=== PATIENT | male | born 1930 | race Caucasian/White ===

== ENCOUNTER 2017-03-18 14:28 | Outpatient (CLI) | payer MEDICARE, OTHER | END 2017-03-18 14:29 | disposition home or self-care (01) | DX: I50.9 Heart failure, unspecified (principal) ==

== ENCOUNTER 2017-03-19 09:02 | Outpatient (CLI) | payer MEDICARE, OTHER | END 2017-03-19 09:03 | disposition home or self-care (01) | LOC: DI 09:02 | PROVIDERS: ATTEND Internal Medicine | DX: I25.10 Atherosclerotic heart disease of native coronary artery without angina pectoris (principal); I51.7 Cardiomegaly | CPT/HCPCS: 93306 ==

== ENCOUNTER 2017-04-14 13:21 | Outpatient (CLI) | payer MEDICARE, OTHER ==
--- NOTE | 2017-04-14 17:11 | XRAY Report ---
TWO VIEW CHEST: 04/14/2017 CLINICAL INDICATION: Dyspnea. FINDINGS: Frontal and lateral views of the chest demonstrate changes of previous cardiac surgery. Th e cardiac silhouette is enlarged. Linear atelectasis or scarring is seen in the upper lobes. No focal consolidation, effusion, or pneumothorax is present. IMPRESSION: POSTOPERATIVE CHANGES. NO EVIDENCE OF ACUTE CARDIOPULMONARY DISEASE. JOB #: [id number] EXT JOB #:[id number]
== END 2017-04-14 13:22 | disposition home or self-care (01) ==
LOC: DI.S 13:21
PROVIDERS: ATTEND Internal Medicine
DX: R06.00 Dyspnea, unspecified (principal)
CPT/HCPCS: 71020

== ENCOUNTER 2017-08-10 16:46 | Emergency (ER) | payer MEDICARE, OTHER ==
--- NOTE | 2017-08-10 17:31 | XRAY Preliminary Report ---
Exam: XR CHEST 2 VIEW PA/LAT IMPRESSION: No change. No developing consolidative pneumonia. Perihilar airway thickening unchanged. [facility] SITE ID: [id number]
--- NOTE | 2017-08-10 17:34 | XRAY Report ---
EXAM: CHEST RADIOGRAPHY EXAM DATE: 08/10/2017 05:24 PM. CLINICAL HISTORY: Cough. COMPARISON: 04/14/2017. TECHNIQUE: 2 views. FINDINGS: Lungs/Pleura: Bilateral perihilar interstitial prominence appears without significant interval change . Lung volumes are stable. Negative for pleural effusion and pneumothorax. Mediastinum: Previous sternotomy noted. Mediastinal contour is unchanged. Other: None. IMPRESSION: No change. No developing consolidative pneumonia. Perihilar airway thickening unchanged. [facility] Referring Provider Line: [phone] SITE ID: [id number]
[2017-08-10 17:44] LABS: BASOPHILS # (AUTO) 0.1 10^3/uL (0.0-0.1); BASOPHILS % (AUTO) 0.6 %; EOSINOPHILS % (AUTO) 0.1 %; HCT - HEMATOCRIT 40.9 % (42.0-52.0); HGB - HEMOGLOBIN 13.8 g/dL (14.0-18.0); LYMPHOCYTES # (AUTO) 0.8 10^3/uL (1.5-3.5); LYMPHOCYTES % (AUTO) 7.1 %; MEAN CORPUSCULAR HEMOGLOBIN 30.2 pg (27.0-31.0); MEAN CORPUSCULAR HGB CONC 33.8 g/dL (32.0-36.0); MEAN CORPUSCULAR VOLUME 89.3 fL (80.0-94.0); MEAN PLATELET VOLUME 8.6 fL (7.4-11.4); MONOCYTES # (AUTO) 1.2 10^3/uL (0.0-1.0); MONOCYTES % (AUTO) 10.5 %; NEUTROPHILS # (AUTO) 9.6 10^3/uL (1.5-6.6); NEUTROPHILS % (AUTO) 81.7 %; RED BLOOD COUNT 4.59 10^6/uL (4.70-6.10); RED CELL DISTRIBUTION WIDTH 13.4 % (12.0-15.0); UNCORRECTED WHITE BLOOD COUNT 11.8 x10^3/uL; WHITE BLOOD COUNT 11.8 x10^3/uL (4.8-10.8)
[2017-08-10 17:53] LABS: CALCIUM 8.9 mg/dL (8.5-10.3); POTASSIUM 3.4 mmol/L (3.5-5.0); TOTAL PROTEIN 7.8 g/dL (6.7-8.2)
[2017-08-10] MEDS ORDERED: AZITHROMYCIN 250 MG TABLET PO STA (18:17)
[2017-08-10] MEDS ORDERED: guaiFENesin/CODEINE 5 ML UDC PO STA (18:17)
--- NOTE | 2017-08-10 18:17 | ED Physician Documentation ---
PD HPI DYSPNEA - Stated complaint Stated Complaint: SOA/FEVER - Chief complaint Chief Complaint: Resp - History obtained from History obtained from: Patient - History of Present Illness Timing - onset: Other (This is an 87-year-old gentleman with type 2 diabetes he has had 4 days of productive cough and a variety of colors with mild dyspnea and some fevers including a temperature to 100.6 today.) Review of Systems Constitutional: reports: Fever, Chills, Fatigue Nose: denies: Rhinorrhea / runny nose, Congestion Throat: denies: Sore throat Cardiac: denies: Chest pain / pressure, Palpitations Respiratory: reports: Dyspnea, Cough PD PAST MEDICAL HISTORY - Present Medications Home Medications: Ambulatory Orders Medication Instructions Recorded Confirmed Albuterol Sulfate [Proventil Hfa 1 - 2 puffs IH Q4H PRN #1 08/10/17 Inhaler] [email or web address] Amlodipine Besylate 10 mg PO DAILY 08/10/17 08/10/17 Aspirin [Adult Low Dose Aspirin EC] 81 mg PO DAILY 08/10/17 08/10/17 Azithromycin [Zithromax] 250 mg PO DAILY #4 tablet 08/10/17 Losartan Potassium 50 mg DAILY 08/10/17 08/10/17 Metformin HCl 500 mg PO BID 08/10/17 08/10/17 Nitroglycerin 0.4 mg/Hr Patch 1 patch DAILY 08/10/17 08/10/17 [Nitro-Dur] Omeprazole [PriLOSEC] 20 mg PO DAILY 08/10/17 08/10/17 Pravastatin Sodium [Pravachol] 20 mg PO DAILY 08/10/17 08/10/17 guaiFENesin/CODEINE [Robitussin AC] 5 - 10 ml PO Q6H PRN #120 ml 08/10/17 - Allergies Allergies/Adverse Reactions: Allergies Allergy/AdvReac Type Severity Reaction Status Date / Time eggs Allergy Unknown Uncoded 08/10/17 18:11 PD ED PE NORMAL - Vitals Vital signs reviewed: Yes - General General: Alert and oriented X 3, No acute distress - Cardiac Cardiac: RRR, No murmur - Respiratory Respiratory: No respiratory distress, Other (Mildly diminished and wheezy throughout without focal findings) - Abdomen Abdomen: Soft, Non tender - Extremities Extremities: No edema, No calf tenderness / cord - Neuro Neuro: Alert and oriented X 3, Normal speech - Psych Psych: Normal mood, Normal affect Results - Vitals Vitals: Vital Signs - 24 hr 08/10/17 16:49 Temperature 37.3 C Heart Rate 106 H Respiratory 22 Rate Blood Pressure 156/85 H O2 Saturation 95 Oxygen O2 Source Room air - Labs Labs: Laboratory Tests 08/10/17 08/10/17 08/10/17 17:25 17:25 17:25 WBC 11.8 H RBC 4.59 L Hgb 13.8 L Hct 40.9 L MCV 89.3 MCH 30.2 MCHC 33.8 RDW 13.4 Plt Count 197 MPV 8.6 Neut # 9.6 H Lymph # 0.8 L [place] # 1.2 H Eos # 0.0 Baso # 0.1 Absolute Nucleated RBC 0.00 Nucleated RBC % 0.0 Sodium 135 Potassium 3.4 L Chloride 98 L Carbon Dioxide 26 Anion Gap 12.0 BUN 13 Creatinine 1.0 Estimated GFR (MDRD) 71 L Glucose 188 H Lactic Acid 1.3 Calcium 8.9 Total Bilirubin 1.0 AST 17 ALT 16 Alkaline Phosphatase 82 Total Protein 7.8 Albumin 3.8 Globulin 3.9 Albumin/Globulin Ratio 1.0 Lipase 16 L PD MEDICAL DECISION MAKING - ED course Complexity details: re-evaluated patient (This is an 87-year-old gentleman who presents with productive cough with clear chest x-ray and mild leukocytosis. No obvious evidence of pneumonia but will be treated with antibiotics given his advanced age and comorbid illnesses.) Departure - Departure Disposition: 01 Home, Self Care Clinical Impression: Bronchitis Condition: Good Record reviewed to determine appropriate education?: Yes Instructions: ED Bronchitis Asthmatic Prescriptions: Albuterol Sulfate [Proventil Hfa Inhaler] 1 - 2 puffs IH Q4H PRN #1 [email or web address] PRN Reason: Cough Azithromycin [Zithromax] 250 mg PO DAILY #4 tablet guaiFENesin/CODEINE [Robitussin AC] 5 - 10 ml PO Q6H PRN #120 ml PRN Reason: Cough Comments: Call your doctor to arrange a follow-up appointment, make the next available appointment. In the interim, return anytime if worse or if new symptoms develop. Your blood pressure was elevated today on check into the emergency department. This does not mean that you have hypertension, it is a common phenomenon to come to the emergency department and have elevated blood pressure. I recommend that she see your primary care physician within the week to have it rechecked when you are feeling better.
[2017-08-10] MEDS ORDERED: guaiFENesin/CODEINE 5 ML UDC ONE (18:29)
[2017-08-10] MEDS ORDERED: AZITHROMYCIN 250 MG TABLET PO ONE (18:29)
[2017-08-10 20:01] VITALS: BP 168/88
== END 2017-08-10 18:45 | disposition home or self-care (01) ==
LOC: ED 16:46
DX: J40 Bronchitis, not specified as acute or chronic (principal); E11.9 Type 2 diabetes mellitus without complications; Z79.84 Long term (current) use of oral hypoglycemic drugs; R03.0 Elevated blood-pressure reading, without diagnosis of hypertension
CPT/HCPCS: 36415; 71020; 80053; 83605; 83690; 85025; 87040; 99283; A9270

== ENCOUNTER 2017-08-11 03:06 | Outpatient (CLI) | payer MEDICARE, OTHER | END 2017-08-11 03:07 | disposition critical access hospital (66) | LOC: EMS 03:06 | PROVIDERS: ATTEND Surgery | DX: R05 Cough (principal); R07.81 Pleurodynia; R53.1 Weakness; R06.02 Shortness of breath | CPT/HCPCS: A0425; A0427 ==

== ENCOUNTER 2017-08-11 03:41 | Inpatient (IN) | payer MEDICARE, OTHER ==
--- NOTE | 2017-08-11 03:48 | ED Physician Documentation ---
PD HPI DYSPNEA - Stated complaint Stated Complaint: SOA - Chief complaint Chief Complaint: Resp - History obtained from History obtained from: Patient, Family, EMS - History of Present Illness Timing - onset: How many days ago (3) Timing - onset during: Rest Timing - details: Gradual onset, Still present Improved by: O2, Inhaler/neb Worsened by: Exertion, Laying flat, Coughing Associated symptoms: Cough, Wheezing. No: Fever, Bilateral edema, Unilateral edema Similar symptoms before: Work up / diagnostics, Treatment Recently seen: Clinic, Emergency Dept - Additional information Additional information: Patient is an 87 year old male who is presenting to the emergency department for shortness of breath. patient states that he had not been feeling well for the last few days. He saw his pmd earlier today who sent him in for chest x- ray. Patient's chest x-ray was relatively unremarkable and patient was sent home. patient states that his symptoms got worse throughout the evening so he called ems to bring him in. Patient had some respiratory distress and was treated with duoneb enroute. Patient denies any smoking history but reports that he has inhaled a lot of break dust. Review of Systems Constitutional: reports: Chills. denies: Fever, Myalgias Eyes: denies: Decreased vision Ears: denies: Ear pain, Drainage/discharge Nose: reports: Rhinorrhea / runny nose, Congestion Throat: denies: Sore throat Cardiac: denies: Chest pain / pressure, Palpitations Respiratory: reports: Dyspnea, Cough, Wheezing. denies: Hemoptysis GI: denies: Nausea, Vomiting, Constipation, Diarrhea : reports: Frequency Skin: denies: Rash, Lesions, Abrasion (s) Neurologic: denies: Generalized weakness, Focal weakness, Numbness, Difficulty speaking Immunocompromised: denies: Immunocompromised PD PAST MEDICAL HISTORY - Past Medical History Cardiovascular: Hypertension Neuro: Peripheral neuropathy Endocrine/Autoimmune: Type 2 diabetes Musculoskeletal: Other - Past Surgical History Past Surgical History: Yes Ortho: Knee replacement Cardiovascular: CABG - Present Medications Home Medications: Ambulatory Orders Medication Instructions Recorded Confirmed Albuterol Sulfate [Proventil Hfa 1 - 2 puffs IH Q4H PRN #1 08/10/17 08/11/17 Inhaler] [email or web address] Amlodipine Besylate 10 mg PO DAILY 08/10/17 08/11/17 Aspirin [Adult Low Dose Aspirin EC] 81 mg PO DAILY 08/10/17 08/11/17 Azithromycin [Zithromax] 250 mg PO DAILY #4 tablet 08/10/17 08/11/17 Losartan Potassium 50 mg DAILY 08/10/17 08/11/17 Metformin HCl 500 mg PO BID 08/10/17 08/11/17 Nitroglycerin 0.4 mg/Hr Patch 1 patch DAILY 08/10/17 08/11/17 [Nitro-Dur] Omeprazole [PriLOSEC] 20 mg PO DAILY 08/10/17 08/11/17 Pravastatin Sodium [Pravachol] 20 mg PO DAILY 08/10/17 08/11/17 guaiFENesin/CODEINE [Robitussin AC] 5 - 10 ml PO Q6H PRN #120 ml 08/10/17 guaiFENesin/CODEINE [Robitussin AC] 5 - 10 ml PO Q6HR PRN 08/11/17 08/11/17 - Allergies Allergies/Adverse Reactions: Allergies Allergy/AdvReac Type Severity Reaction Status Date / Time eggs Allergy Unknown Uncoded 08/11/17 03:57 - Social History Does the pt smoke?: No Smoking Status: Never smoker Does the pt drink ETOH?: Yes Does the pt have substance abuse?: No PD ED PE NORMAL - Vitals Vital signs reviewed: Yes - General General: Alert and oriented X 3 - HEENT HEENT: Atraumatic, Pharynx benign - Neck Neck: No JVD - Derm Derm: Normal color, Warm and dry, No rash - Extremities Extremities: No deformity, No edema, No calf tenderness / cord - Neuro Neuro: Alert and oriented X 3, No motor deficit, No sensory deficit, Normal speech - Psych Psych: Normal mood PD ED PE EXPANDED - General General: Alert, In distress - HEENT HEENT: Dry mucous membranes - Cardiac Cardiac: Tachy - Respiratory Respiratory: Distress, Accessory mm use, Wheezing, Decreased breath sounds, Right lower lobe, Left lower lobe. No: Gasping - Abdomen Abdomen: Surgical scars, Other (obese) Results - Vitals Vitals: Vital Signs - 24 hr 08/11/17 08/11/17 08/11/17 03:42 04:00 04:09 Temperature 37.3 C Heart Rate 122 H 112 H 108 H Respiratory 34 H 26 H 30 H Rate Blood Pressure 155/83 H 148/84 H O2 Saturation 94 98 10/11/17 10/11/17 10/11/17 04:25 04:51 05:21 Temperature 37.4 C Heart Rate 115 H 112 H 110 H Respiratory 25 H 23 38 H Rate Blood Pressure 142/78 H 134/80 H 123/95 H O2 Saturation 98 99 97 08/11/17 05:50 Temperature Heart Rate 108 H Respiratory 33 H Rate Blood Pressure 126/86 H O2 Saturation 97 Oxygen O2 Source Nasal cannula Oxygen Flow Rate 2 - EKG (time done) 0351 Rate: Rate (enter#) (119) Rhythm: Other (mulifocal atrial tachycardia) [place]: Normal Ischemia: ST depression, Non specific changes Compare to prior EKG: Old EKG unavailable - Labs Labs: Laboratory Tests 08/11/17 08/11/17 08/11/17 04:05 04:05 04:05 WBC RBC Hgb Hct MCV MCH MCHC RDW Plt Count MPV Neut # Lymph # [place] # Eos # Baso # Absolute Nucleated RBC Nucleated RBC % PT 13.6 H INR 1.2 Sodium 136 Potassium 3.5 Chloride 97 L Carbon Dioxide 25 Anion Gap 14.0 H BUN 14 Creatinine 1.0 Estimated GFR (MDRD) 71 L Glucose 209 H Calcium 9.1 Total Bilirubin 1.1 H AST 20 ALT 18 Alkaline Phosphatase 74 Troponin I 0.35 B-Natriuretic Peptide Total Protein 7.5 Albumin 3.6 Globulin 3.9 Albumin/Globulin Ratio 0.9 L Lipase 22 Influenza A (Rapid) Influenza B (Rapid) Influenza Types A,B Ag 08/11/17 08/11/17 08/11/17 04:05 04:05 04:34 WBC 11.0 H RBC 4.38 L Hgb 13.2 L Hct 38.7 L MCV 88.2 MCH 30.1 MCHC 34.1 RDW 13.3 Plt Count 183 MPV 8.5 Neut # 8.7 H Lymph # 0.9 L [place] # 1.3 H Eos # 0.0 Baso # 0.0 Absolute Nucleated RBC 0.00 Nucleated RBC % 0.0 PT INR Sodium Potassium Chloride Carbon Dioxide Anion Gap BUN Creatinine Estimated GFR (MDRD) Glucose Calcium Total Bilirubin AST ALT Alkaline Phosphatase Troponin I B-Natriuretic Peptide 274 H Total Protein Albumin Globulin Albumin/Globulin Ratio Lipase Influenza A (Rapid) Negative Influenza B (Rapid) Negative Influenza Types A,B Ag - - Rads (name of study) ct angio Radiology: Final report received (no pe, emphysamtous changes patchy opacities) PD MEDICAL DECISION MAKING - ED course Complexity details: reviewed old records, reviewed results, re-evaluated patient , considered differential, d/w patient, d/w family ED course: Patient was seen and examined at bedside. Patient was in mild respiratory distress. Patient was treated with additional duonebs. ekg was performed which showed some changes consistent with lung disease. labs were drawn and imaging was ordered. When patient returned the results were reviewed. additional albuterol and steroids were ordered. Patient was still breathing at a rate close to 30. Hospitalist was contacted and the case was discussed with her. Patient was admitted for further evaluation and care. Departure - Departure Disposition: 66 [facility] DC/Xfer Clinical Impression: Dyspnea, Bronchitis Condition: Good
[2017-08-11] MEDS ORDERED: IPRATROPIUM/ALBUTEROL 3 ML NEB INH STA (03:49)
[2017-08-11] MEDS ORDERED: IPRATROPIUM/ALBUTEROL 3 ML NEB INH ONE (04:04)
[2017-08-11] MEDS ORDERED: SODIUM CHLORIDE FLUSH 0.9% 10 ML SYRINGE IVP ONE (04:07)
[2017-08-11 04:12] LABS: BASOPHILS % (AUTO) 0.4 %; HCT - HEMATOCRIT 38.7 % (42.0-52.0); HGB - HEMOGLOBIN 13.2 g/dL (14.0-18.0); LYMPHOCYTES # (AUTO) 0.9 10^3/uL (1.5-3.5); LYMPHOCYTES % (AUTO) 7.8 %; MEAN CORPUSCULAR HEMOGLOBIN 30.1 pg (27.0-31.0); MEAN CORPUSCULAR HGB CONC 34.1 g/dL (32.0-36.0); MEAN CORPUSCULAR VOLUME 88.2 fL (80.0-94.0); MEAN PLATELET VOLUME 8.5 fL (7.4-11.4); MONOCYTES # (AUTO) 1.3 10^3/uL (0.0-1.0); MONOCYTES % (AUTO) 12.3 %; NEUTROPHILS # (AUTO) 8.7 10^3/uL (1.5-6.6); NEUTROPHILS % (AUTO) 79.5 %; RED BLOOD COUNT 4.38 10^6/uL (4.70-6.10); RED CELL DISTRIBUTION WIDTH 13.3 % (12.0-15.0)
[2017-08-11 04:21] LABS: INR 1.2 (0.8-1.2); PT - PROTHROMBIN TIME 13.6 secs (9.9-12.6)
[2017-08-11 04:24] LABS: ALBUMIN/GLOBULIN RATIO 0.9 (1.0-2.2); BILIRUBIN,TOTAL 1.1 mg/dL (0.2-1.0); CALCIUM 9.1 mg/dL (8.5-10.3); POTASSIUM 3.5 mmol/L (3.5-5.0); TOTAL PROTEIN 7.5 g/dL (6.7-8.2)
[2017-08-11] MEDS ORDERED: IOPAMIDOL-300 100 ML VIAL ONE (04:28)
[2017-08-11] MEDS ORDERED: IOPAMIDOL-300 100 ML VIAL IVP ONE (04:53)
--- NOTE | 2017-08-11 05:22 | CT Preliminary Report ---
Exam: CT CHEST ANGIO (PE) IMPRESSION: 1. No pulmonary emboli seen. 2. Emphysematous changes with patchy pulmonary opacities, most confluent in the left upper lobe. Find ings could be inflammatory or postinflammatory. Malignancy less likely but not entirely excluded. 3. 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 4. Stones at the gallbladder neck without obvious cholecystitis. Recommend clinical correlation. [facility] SITE ID: [id number]
[2017-08-11] MEDS ORDERED: methylPREDNISolone SUCCINATE 125 MG/2 ML VIAL IVP STA (05:24)
--- NOTE | 2017-08-11 05:25 | CT Report ---
EXAM: CT ANGIOGRAM CHEST EXAM DATE: 08/11/2017 05:00 AM. CLINICAL HISTORY: Shortness of breath and tachycardia. COMPARISON: None. TECHNIQUE: Routine helical imaging was performed through the chest in the pulmonary arterial phase. I V Contrast: Nonionic. Reconstructions: Coronal 3-D MIP reconstructions.Sagittal and coronal. In accordance with CT protocol optimization, one or more of the following dose reduction techniques w ere utilized for this exam: automated exposure control, adjustment of mA and/or KV based on patient s ize, or use of iterative reconstructive technique. FINDINGS: Pulmonary Arteries: Diagnostic quality: Adequate through the segmental arteries. No evidence for acute or chronic pulmona ry emboli. No evidence of right heart strain. Lungs/Pleura: Emphysematous changes. Patchy bilateral pulmonary opacities, most confluent in the left upper lobe. No pleural effusion. No pneumothorax. Mediastinum: Heart size is normal. Postoperative changes. Multiple normal-sized mediastinal lymph nod es, many of which are calcified. Thoracic Aorta: Atherosclerosis. No aneurysm or dissection. Upper Abdomen: Stones at the gallbladder neck. No obvious cholecystitis. Right renal cyst. Possible f atty liver. Other: Osteopenia. IMPRESSION: 1. No pulmonary emboli seen. 2. Emphysematous changes with patchy pulmonary opacities, most confluent in the left upper lobe. Find ings could be inflammatory or postinflammatory. Malignancy less likely but not entirely excluded. 3. 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 4. Stones at the gallbladder neck without obvious cholecystitis. Recommend clinical correlation. [facility] Referring Provider Line: [phone] SITE ID: [id number]
[2017-08-11] MEDS ORDERED: methylPREDNISolone SUCCINATE 125 MG/2 ML VIAL ONE (05:32)
[2017-08-11] MEDS ORDERED: SODIUM CHLORIDE FLUSH 0.9% 10 ML SYRINGE IVP PRN (06:52)
[2017-08-11] MEDS ORDERED: MORPHINE 2 MG/ML SYRINGE IVP PRN ×2 (06:52→07:18)
[2017-08-11] MEDS ORDERED: PROCHLORPERAZINE 10 MG/2 ML VIAL IVP PRN ×2 (06:52→07:18)
[2017-08-11] MEDS ORDERED: oxyCODONE 5 MG TABLET PO PRN ×2 (06:52→07:18)
[2017-08-11] MEDS ORDERED: ZOLPIDEM 5 MG TABLET PO PRN ×2 (06:52→07:18)
[2017-08-11] MEDS ORDERED: ACETAMINOPHEN 325 MG TABLET PO PRN ×2 (06:52→07:18)
[2017-08-11] MEDS ORDERED: guaiFENesin/CODEINE 5 ML UDC PO PRN (06:58)
[2017-08-11] MEDS ORDERED: methylPREDNISolone SUCCINATE 125 MG/2 ML VIAL IVP SCH ×4 (08:00→14:26)
[2017-08-11] MEDS: diltiaZEM CD 120 MG CAPSULE PO SCH ×2 (08:12→20:15)
[2017-08-11] MEDS: LOSARTAN 50 MG TABLET PO SCH (08:13)
[2017-08-11] MEDS: NITROGLYCERIN 0.4 MG/HR PATCH TOP SCH (08:13)
[2017-08-11] MEDS: FAMOTIDINE 20 MG TABLET PO SCH (08:17)
[2017-08-11] MEDS: ENOXAPARIN 40 MG/0.4 ML SYRINGE SUBQ SCH ×2 (08:17→20:15)
[2017-08-11] MEDS ORDERED: POLYETHYLENE GLYCOL 3350 17 GM PACKET PO SCH (09:00)
[2017-08-11] MEDS ORDERED: AZITHROMYCIN INJ 500 MG in SODIUM CHLORIDE 0.9% 250 ML IV SCH ×4 (09:00)
[2017-08-11] MEDS ORDERED: ENOXAPARIN 40 MG/0.4 ML SYRINGE SUBQ SCH (09:00)
[2017-08-11] MEDS ORDERED: NITROGLYCERIN 0.4 MG/HR PATCH TOP SCH (09:00)
[2017-08-11] MEDS ORDERED: diltiaZEM CD 120 MG CAPSULE PO SCH (09:00)
[2017-08-11] MEDS ORDERED: ASPIRIN EC 81 MG TABLET PO SCH ×2 (09:00)
[2017-08-11] MEDS ORDERED: metFORMIN 500 MG TABLET PO SCH (09:00)
[2017-08-11] MEDS ORDERED: LEVALBUTEROL 1.25 MG INH SCH (09:00)
[2017-08-11] MEDS ORDERED: PRAVASTATIN SODIUM 20 MG PO SCH (09:00)
[2017-08-11] MEDS ORDERED: LOSARTAN 50 MG TABLET PO SCH (09:00)
[2017-08-11] MEDS ORDERED: FAMOTIDINE 20 MG TABLET PO SCH (09:00)
[2017-08-11] MEDS ORDERED: IPRATROPIUM/ALBUTEROL 3 ML NEB INH PRN (10:15)
[2017-08-11 11:14] LABS: HEMOGLOBIN A1C 0.66 g/dL
[2017-08-11] MEDS: INSULIN ASPART 300 UNIT/3 ML PEN SUBQ SCH ×3 (11:32→20:26)
[2017-08-11] MEDS: LEVALBUTEROL 1.25 MG INH SCH ×3 (12:15→21:43)
[2017-08-11] MEDS: SODIUM CHLORIDE INHALATION 3 ML NEB INH PRN ×2 (12:15→21:43)
[2017-08-11 13:10] LABS: BILIRUBIN,URINE NEGATIVE (NEGATIVE)
[2017-08-11 13:23] LABS: ABG BASE EXCESS -1.8 mmol/L (-2.0-3.0); ABG HCO3 22.3 mmol/L (22.0-26.0); ABG OXYGEN SATURATION 95 % (94-98); ABG PCO2 36 mmHg (34-45); ABG PH 7.41 (7.35-7.45); ABG PO2 72 mmHg (80-100); ABG ROOM AIR YES; ABG SATURATION PULSE OXIMETRY% 94 %; ABG SITE OF DRAW RIGHT RADIAL; ABG TCO2 23.4 MMOL/L (21.0-29.0); ALLEN TEST POSITIVE
[2017-08-11 13:24] LABS: ABG RESPIRATORY RATE 28 b/min
[2017-08-11] MEDS: SODIUM CHLORIDE FLUSH 0.9% 10 ML SYRINGE IVP SCH ×2 (13:43→20:16)
[2017-08-11] MEDS: FUROSEMIDE 20 MG/2 ML VIAL IVP SCH (13:43)
[2017-08-11] MEDS ORDERED: ASPIRIN EC 325 MG TABLET PO ONE (13:58)
[2017-08-11] MEDS ORDERED: ASPIRIN 325 MG TABLET PO ONE (14:00)
[2017-08-11] MEDS ORDERED: methylPREDNISolone SUCCINATE 40 MG/ML VIAL IVP SCH (14:00)
[2017-08-11] MEDS ORDERED: SODIUM CHLORIDE FLUSH 0.9% 10 ML SYRINGE IVP SCH (14:00)
--- NOTE | 2017-08-11 15:39 | HISTORY & PHYSICAL EXAMINATION ---
DATE OF ADMISSION: 08/11/2017 HISTORY OF PRESENT ILLNESS: This is an 87-year-old white male with history of diabetes on oral agents only, coronary disease with bypass surgery 20 years ago , osteoarthritis, right knee replacement. The patient presented with a 2-3 day history of worsening shortness of breath for which he saw his primary doctor and had a chest x-ray, which was reportedly unremarkable. He had rapidly worsening dyspnea at rest with orthopnea, respiratory distress, using accessory muscles of breathing and presented to the emergency room. The patient required inhaler treatments in the emergency room with some minimal improvement and is being admitted for management of worsening shortness of breath. The patient states that over the past 20 years there has been no further workup of his coronary disease such as any followup stress tests or repeat coronary angiography. He remembers seeing a proteomics scientist minimally over the past 20 years , the last was approximately 2 months ago. He remembers having echos in the past , unknown results and in what time period. The patient denies any symptoms of chest pain. He states that he has been having slowly worsening dyspnea on exertion for which he has seen his primary care doctor and started on guaifenesin, inhalers and a Zpak recently. The patient denies fever, palpitations, syncope. He does describe left ankle swelling intermittently. He does describe a recent cough with minimal sputum production. He does admit to PND and orthopnea over the past 2 days. REVIEW OF SYSTEMS No myalgias or fever or chills. Positive URI/runny nose and congestion. Negative sore throat. Negative chest pain. Positive shortness of breath with cough and wheezing, no hemoptysis. Negative nausea, vomiting or hematemesis. Negative urinary frequency. Negative rash or leg ulcers. No neurologic complaints. 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 He is now retired for approximately 10-15 years. The patient has never had PFTs. FAMILY HISTORY: No history of premature coronary disease or diabetes. PAST SURGICAL HISTORY: Right total knee replacement and remote bypass surgery. MEDICATIONS AT HOME Were 1. Recent albuterol inhaler. 2. Recent Robitussin p.o. 3. Amlodipine 10 mg p.o. daily. 4. Aspirin 81 mg p.o. daily. 5. Losartan 50 mg p.o. daily. 6. Metformin 500 mg p.o. b.i.d. 7. Topical nitro patch 0.4 mg topically daily. 8. Prilosec 20 mg p.o. daily. 9. Pravastatin 20 mg p.o. daily. 10. New Zithromax with a Z-Suleiman. ALLERGIES: EGGS. SOCIAL HISTORY: The patient has never smoked. He drinks alcohol socially. He denies any illicit drug use. PHYSICAL EXAMINATION GENERAL: Reveals an obese white male. He is in mild respiratory distress, using accessory muscles of respiration. VITAL SIGNS: Blood pressure 142/78, pulse is 115 in multifocal atrial tachycardia, respiratory rate 25-38, oxygen saturation 98% on 2 L nasal cannula , afebrile. HEENT: Shows normal oral mucosa. NECK: Supple, without JVD in a vertical position. No carotid bruits. No thyromegaly or lymphadenopathy. CHEST: Has increased AP diameter. There is poor air movement. There are scattered wheezes, mostly in the right base. There are no rales or rhonchi. ABDOMEN: Obese, soft with positive bowel sounds. I cannot rule out organomegaly. EXTREMITIES: Show right knee vertical scar, which is clean. The left ankle has trace edema. There is no calf tenderness. He has good dorsalis pedis pulses. NEUROLOGIC: Grossly intact. LABORATORY: Sodium 136, potassium 3.5, BUN 14, creatinine 1.0, glucose 209 ( nonfasting). Normal liver tests. The 1st troponin is 0.35. BNP 274. White blood count 11, hemoglobin 13.2, platelet count 183. INR 1.2. Influenza A and B negative. IMAGING: Chest x-ray was not done, but the patient had a CTA of the thorax, which showed emphysematous changes of the lungs and mediastinal lymph nodes consistent with granulomatous disease, old. There were no pulmonary emboli identified. The heart size is normal, and there are postoperative changes (CABG) . EKG: Multifocal atrial tachycardia at a rate of [address]- T changes. There is no old EKG available for comparison. IMPRESSION 1. Chronic obstructive pulmonary disease exacerbation (1st chronic obstructive pulmonary disease presentation per his history). 2. Multifocal atrial tachycardia (this is very common dysrhythmia seen in chronic lung disease patients). 3. Diabetes, on oral agents. The patient, however, admits to poor diabetic diet restrictions. 4. Coronary artery disease with remote coronary artery bypass graft. Unknown coronary status or ejection fraction at this time. 5. Elevated troponin, possible acute non-ST elevation myocardial infarction, which could be demand ischemia related to his tachycardia or shortness of breath causing possible hypoxemia. 6. History of hypertension. 7. Remote right knee surgery, stable with no complaints. PLAN: Admit the patient on telemetry Med-Surg service. Follow his heart rate. Stop the Amlodipine and use Cardizem for rate control, blood pressure control and coronary vasodilation. Avoid nonspecific beta adriana use because of his COPD, only B-1 selective B-adriana is needed. Begin the patient on IV steroids, inhalers using Xopenex to avoid tachycardia and begin IV antibiotics empirically for bronchitis. Obtain bedside PFTs if available. Obtain an echo to evaluate for pulmonary hypertension. The patient will need pulmonary followup as an outpatient given this new presentation of COPD/bronchitis. Use supplemental oxygen as needed. Obtain an echo to evaluate for LV ejection fraction. Cycle troponins to rule out MS. Continue with his topical nitrates and aspirin given the history of COPD and shortness of breath and mild elevation of troponin, which is suspicious for ruling in for an MS. If he has a rule in, coronary angiography would be planned for detailed evaluation of coronary status after his pulmonary status improves and he is able to lie flat. Continue with his diabetic treatment, and diabetic diet will be initiated. If necessary, sliding scale insulin will be added for glucose control. Obtain HbA1c to assess his prior recent control. JOB #: [id number] EXT JOB #:[id number] [facility]
--- NOTE | 2017-08-11 17:33 | PROVIDER PROGRESS NOTE ---
Subjective - Prog Note Date Prog Note Date: 08/11/17 - Subjective Pt reports feeling: Improved Subjective: pt continue to have increase of troponin. I called supervisor concrete block plant , he recommend we transfer pt. I called [facility] and paged , supervisor concrete block plant. I am waiting for him to call me back. Pt is asymptomatic, no chest pain, no distress. EKG is done and unchanged from previous one I gave Aspirin 325 mg already, 20 mg Lasix due to elevated BNP and impaired LVF I called , and I gave my phone number to the service, I wait for the supervisor concrete block plant to call me back. I report pt's these informations to night team hospitalist Current Medications - Current Medications Current Medications: Active Medications Acetaminophen (Tylenol) 650 mg PO Q4HR PRN PRN Reason: Pain 1 to 4 Albuterol/Ipratropium (Duoneb) 3 ml INH RTQID PRN PRN Reason: Shortness of Air/Wheezing Aspirin (Ecotrin) 81 mg PO DAILY [facility] Last Admin: 08/11/17 08:13 Dose: 81 mg Atorvastatin Calcium (Lipitor) 80 mg PO QPM EL Diltiazem HCl (Cardizem Cd) 120 mg PO BID [facility] Last Admin: 08/11/17 20:15 Dose: 120 mg Enoxaparin Sodium (Lovenox) 70 mg SUBQ BID EL Enoxaparin Sodium (Lovenox) 30 mg SUBQ ONCE EL Stop: 08/11/17 23:59 Famotidine (Pepcid) 20 mg PO DAILY [facility] Last Admin: 08/11/17 08:17 Dose: 20 mg Furosemide (Lasix Inj 20mg Vial) 20 mg IVP DAILY [facility] Last Admin: 08/11/17 13:43 Dose: 20 mg Guaifenesin/Codeine Phosphate (Robitussin Ac) 10 ml PO Q6H PRN PRN Reason: Cough Last Admin: 08/11/17 20:15 Dose: 10 ml Azithromycin 500 mg/ Sodium (Chloride) 250 mls @ 250 mls/hr IV DAILY [facility] Last Infusion: 08/11/17 09:30 Dose: Infused Insulin Aspart (Novolog) 1 - 5 unit SUBQ 0800,1200,1700,2100 EL PRN Reason: Protocol Last Admin: 08/11/17 20:26 Dose: 3 unit Levalbuterol HCl (Xopenex) 1.25 mg INH RTQID [facility] Last Admin: 08/11/17 15:30 Dose: 1.25 mg Losartan Potassium (Cozaar) 50 mg PO DAILY [facility] Last Admin: 08/11/17 08:13 Dose: 50 mg Methylprednisolone Sodium Succinate (Solu-Medrol (125mg Vial)) 60 mg IVP Q8HR [facility] Morphine Sulfate (Morphine) 2 mg IVP Q2H PRN PRN Reason: Pain 8 to 10 Nitroglycerin (Nitro-Dur) 1 patch TOP DAILY [facility] Last Admin: 08/11/17 08:13 Dose: 1 patch Oxycodone HCl (Roxicodone) 5 mg PO Q4HR PRN PRN Reason: Pain 5 to 7 Polyethylene Glycol (Miralax) 17 gm PO DAILY [facility] Prochlorperazine Edisylate (Compazine Inj) 10 mg IVP Q6HR PRN PRN Reason: Nausea / Vomiting Sodium Chloride (Normal Saline Flush 0.9%) 10 ml IVP PRN PRN PRN Reason: NEEDED PER PROVIDER ORDERS Sodium Chloride (Normal Saline Flush 0.9%) 10 ml IVP Q8HR [facility] Last Admin: 08/11/17 20:16 Dose: 10 ml Sodium Chloride (Normal Saline) 3 ml INH PRN PRN PRN Reason: LEVALBUTEROL TREATMENTS Last Admin: 08/11/17 12:15 Dose: 3 ml Zolpidem Tartrate (Ambien) 5 mg PO QPM PRN PRN Reason: Insomnia Amlodipine Besylate 10 mg PO DAILY 08/10/17 Aspirin [Adult Low Dose Aspirin EC] 81 mg PO DAILY 08/10/17 Losartan Potassium 50 mg DAILY 08/10/17 Metformin HCl 500 mg PO BID 08/10/17 Nitroglycerin 0.4 mg/Hr Patch [Nitro-Dur] 1 patch DAILY 08/10/17 Omeprazole [PriLOSEC] 20 mg PO DAILY 08/10/17 Pravastatin Sodium [Pravachol] 20 mg PO DAILY 08/10/17 guaiFENesin/CODEINE [Robitussin AC] 5 - 10 ml PO Q6HR PRN 08/11/17 Objective - Vital Signs/Intake & Output Reviewed Vital Signs: Yes Vital Signs: Vital Signs x48h Temp Pulse Pulse Resp BP Pulse Ox 08/11/17 15:50 37.0 C 86 16 116/72 96 08/11/17 15:30 83 18 08/11/17 12:16 91 26 H 08/11/17 11:45 37.0 C 105 H 18 142/90 H 92 Intake & Output: Intake & Output 08/08/17 08/09/17 08/10/17 08/11/17 23:59 23:59 23:59 23:59 Intake Total 1500.0 Output Total 275 Balance 1225.0 - Objective General Appearance: positive: No acute distress, Alert. negative: Lethargic Eyes Bilateral: positive: Normal inspection, PERRL, EOMI, No lid inflammation, Conjunctivae nml ENT: positive: ENT inspection nml, Pharynx nml, No signs of dehydration. negative: Purulent nasal drainage, Pharyngeal erythema, Oral lesions Neck: positive: Nml inspection, Thyroid nml, No JVD, Trachea midline. negative : Thyromegaly, Lymphadenopathy (R), Lymphadenopathy (L), Stiff neck, Carotid bruit, Swelling/bruising, Tracheal deviation Respiratory: positive: Chest non-tender, No respiratory distress, Breath sounds nml. negative: Wheezes, Rales Cardiovascular: positive: Regular rate & rhythm, No murmur, No gallop. negative : Irregularly irregular, Extrasystoles, Tachycardia, Bradycardia, Systolic murmur, Diastolic murmur Peripheral Pulses: 2+ Radial (R), 2+ Radial (L), 2+ Dorsalis pedis (R), 2+ Dorsalis pedis (L) Abdomen: positive: Non-tender, Nml bowel sounds, No distention. negative: Tenderness, Guarding, Rebound Back: positive: Nml inspection. negative: CVA tenderness (R), CVA tenderness (L ) Skin: positive: Color nml, No rash, Warm, Dry. negative: Cyanosis, Diaphoresis , Pallor, Skin rash Extremities: positive: Non-tender, Full ROM, Nml appearance. negative: Calf tenderness, Ricardo's sign/cords Neurologic/Psychiatric: positive: Oriented x3, Motor nml, Sensation nml, Mood/ affect nml. negative: Sensory loss, Facial droop, Slurred/abnml speech, Depressed mood/affect - Lab Results Fish Bones: 08/11/17 04:05 08/11/17 04:05 Other Labs: Lab Results x24hrs 08/11/17 08/11/17 08/11/17 Range/Units 16:13 13:12 10:35 Bld Gas Analysis Time 13:12 Sample Site RIGHT RADIAL ABG pH 7.41 (7.35-7.45) ABG pCO2 36 (34-45) mmHg ABG pO2 72 L (80-100) mmHg ABG HCO3 22.3 (22.0-26.0) mmol/L ABG Total CO2 23.4 (21.0-29.0) MMOL/L ABG O2 Saturation 95 (94-98) % ABG Oximetry Spot Check 94 % ABG Base Excess -1.8 (-2.0-3.0) mmol/L Ten Test POSITIVE Respiration Rate 28 b/min Room Air YES Glycated Hemoglobin 6.6 H (4.6-6.2) % Estim Average Glucose 143 H (70-100) Troponin I 1.24 H* (<0.49) ng/mL Urine Color Urine Clarity (CLEAR) Urine pH (5.0-7.5) PH Ur Specific [place] (1.002-1.030) Urine Protein (NEGATIVE) mg/dL Urine Glucose (UA) (NEGATIVE) mg/dL Urine Ketones (NEGATIVE) mg/dL Urine Occult Blood (NEGATIVE) Urine Nitrite (NEGATIVE) Urine Bilirubin (NEGATIVE) Urine Urobilinogen (NORMAL) E.U./dL Ur Leukocyte Esterase (NEGATIVE) 08/11/17 08/11/17 Range/Units 10:05 08:48 Bld Gas Analysis Time Sample Site ABG pH (7.35-7.45) ABG pCO2 (34-45) mmHg ABG pO2 (80-100) mmHg ABG HCO3 (22.0-26.0) mmol/L ABG Total CO2 (21.0-29.0) MMOL/L ABG O2 Saturation (94-98) % ABG Oximetry Spot Check % ABG Base Excess (-2.0-3.0) mmol/L Ten Test Respiration Rate b/min Room Air Glycated Hemoglobin (4.6-6.2) % Estim Average Glucose (70-100) Troponin I 0.85 H* (<0.49) ng/mL Urine Color ORANGE Urine Clarity CLEAR (CLEAR) Urine pH 6.0 (5.0-7.5) PH Ur Specific [place] 1.015 (1.002-1.030) Urine Protein 100 H (NEGATIVE) mg/dL Urine Glucose (UA) NEGATIVE (NEGATIVE) mg/dL Urine Ketones NEGATIVE (NEGATIVE) mg/dL Urine Occult Blood SMALL H (NEGATIVE) Urine Nitrite NEGATIVE (NEGATIVE) Urine Bilirubin NEGATIVE (NEGATIVE) Urine Urobilinogen 0.2 (NORMAL) (NORMAL) E.U./dL Ur Leukocyte Esterase NEGATIVE (NEGATIVE) Assessment/Plan - Problem List (1) Dyspnea Impression: CTA reveals emphysematous changing IVF steroid Xopenex INH Duoneb INH RT treatment, PRN O2 blood gas as needed to closely monitor breathing status (2) Bronchitis Impression: cough, with slight elevated WBC, CTA reveals inflammatory Azithyomycin Breathing treatment PRN supplement of O2 (3) Troponin level elevated Impression: pt's troponin level continue to elevate. Pt is hx of DM2. Although Pt is asymptomatic, no chest pain or discomforted. EKG without significant changing to previous one. Concern if non ST [place]. Called supervisor concrete block plant Dr Doshi, he recommend pt be transfered. Called [facility] and , wait for call back, and transfer the information to night hospitalist team order once Aspirin 325 mg EKG PRN Nitrate PRN tele, vital closely monitor (4) Impaired left ventricular function Impression: ECHO today reviewed, impaired LVF and RVF. Pt with slight elevated BNP IV lasix 20 mg daily lab, I & O. Aspirin 325 mg (5) Multifocal atrial tachycardia Impression: continue cardizem, tele monitor, vial monitor (6) DM2 (diabetes mellitus, type 2) Impression: hold metformin slide scale, pt with steroid, glucose may increase check A1C (7) HTN (hypertension) Impression: stable, will continue the treatment, vital monitor
[2017-08-11] MEDS: guaiFENesin/CODEINE 5 ML UDC PO PRN (20:15)
[2017-08-11] MEDS ORDERED: ENOXAPARIN 30 MG/0.3 ML SYRINGE SUBQ SCH (21:00)
[2017-08-11] MEDS ORDERED: PRAVASTATIN 10 MG TABLET PO SCH (21:00)
--- NOTE | 2017-08-11 21:05 | PROVIDER PROGRESS NOTE ---
Hospitalist Cross-cover Note - Cross-Cover Note Cross-Cover Note: I spoke to the patient's daughter, Debbie, then saw the patient in his room, resting comfortably, to confirm that he wishes transfer to [facility], since his Spinning Lathe Operator, Dr Doshi is affiliated there. I then called the Transfer Nursing Lubricating Engineer at [facility] to get an update about having the patient accepted in transfer, and she said they have no open beds for telemetry at this time. I reviewed the patient's chart and meds. The VS are stable and he is in less SOB than yesterday, on Lasix, ASA was increased to 325 mg daily. I will increase Lovenox to therapeutic dose for anticoagulation, not just prophylactic dose, change Pravastatin 20 mg to Lipitor 80 mg, continue topical nitrates and continue other meds. Currently, the patient is stable from a cardiac standpoint with this medical management. Will recheck a serum troponin level untill it has peaked. The daytime Hospitalist Team will need to reach out to that facility for transfer tomorrow, for coronary angio and further cardiac management.
[2017-08-11] MEDS: ATORVASTATIN 40 MG TABLET PO SCH ×2 (21:58→23:12)
[2017-08-12] MEDS: guaiFENesin/CODEINE 5 ML UDC PO PRN (03:46)
[2017-08-12] MEDS: SODIUM CHLORIDE FLUSH 0.9% 10 ML SYRINGE IVP SCH ×2 (05:22→15:13)
[2017-08-12] MEDS: SODIUM CHLORIDE FLUSH 0.9% 10 ML SYRINGE IVP PRN ×2 (05:22→09:00)
[2017-08-12 05:46] LABS: BASOPHILS % (AUTO) 0.1 %; HCT - HEMATOCRIT 38.3 % (42.0-52.0); HGB - HEMOGLOBIN 12.8 g/dL (14.0-18.0); LYMPHOCYTES % (AUTO) 3.3 %; MEAN CORPUSCULAR HEMOGLOBIN 29.9 pg (27.0-31.0); MEAN CORPUSCULAR HGB CONC 33.5 g/dL (32.0-36.0); MEAN PLATELET VOLUME 8.8 fL (7.4-11.4); MONOCYTES % (AUTO) 3.7 %; NEUTROPHILS % (AUTO) 92.9 %; UNCORRECTED WHITE BLOOD COUNT 14.1 x10^3/uL; WHITE BLOOD COUNT 14.1 x10^3/uL (4.8-10.8)
[2017-08-12 06:02] LABS: ALBUMIN/GLOBULIN RATIO 0.9 (1.0-2.2); BILIRUBIN,TOTAL 0.7 mg/dL (0.2-1.0); CALCIUM 9.2 mg/dL (8.5-10.3); CREATININE 1.2 mg/dL (0.6-1.2); MAGNESIUM 1.9 mg/dL (1.7-2.8); POTASSIUM 3.5 mmol/L (3.5-5.0); TOTAL PROTEIN 7.2 g/dL (6.7-8.2)
[2017-08-12 06:17] LABS: BAND NEUTROPHILS % (MANUAL) 21 %; LYMPHOCYTES % (MANUAL) 3 %; NEUTROPHILS % (MANUAL) 74 %; NP AUTO DIFFERENTIAL? YES; NP MAN DIFFERENTIAL? NO; PLATELET ESTIMATE, MANUAL NORMAL (130-450,000) (NORMAL); TOTAL CELLS COUNTED 100
[2017-08-12] MEDS: LEVALBUTEROL 1.25 MG INH SCH ×2 (07:55→14:48)
[2017-08-12] MEDS: SODIUM CHLORIDE INHALATION 3 ML NEB INH PRN ×2 (07:55→14:48)
[2017-08-12] MEDS ORDERED: methylPREDNISolone SUCCINATE 125 MG/2 ML VIAL IVP SCH ×2 (08:00→14:00)
[2017-08-12] MEDS: INSULIN ASPART 300 UNIT/3 ML PEN SUBQ SCH ×2 (08:50→11:57)
[2017-08-12] MEDS: diltiaZEM CD 120 MG CAPSULE PO SCH (08:52)
[2017-08-12] MEDS: LOSARTAN 50 MG TABLET PO SCH (08:53)
[2017-08-12] MEDS: FAMOTIDINE 20 MG TABLET PO SCH (08:53)
[2017-08-12] MEDS: FUROSEMIDE 20 MG/2 ML VIAL IVP SCH (08:57)
[2017-08-12] MEDS: NITROGLYCERIN 0.4 MG/HR PATCH TOP SCH (08:57)
[2017-08-12] MEDS ORDERED: AZITHROMYCIN 250 MG TABLET PO SCH (09:00)
[2017-08-12] MEDS ORDERED: POLYETHYLENE GLYCOL 3350 17 GM PACKET PO SCH (09:00)
[2017-08-12] MEDS ORDERED: ENOXAPARIN 80 MG/0.8 ML SYRINGE SUBQ SCH (09:00)
[2017-08-12] MEDS ORDERED: ASPIRIN 325 MG TABLET PO SCH (09:00)
--- NOTE | 2017-08-12 13:32 | PROVIDER PROGRESS NOTE ---
Subjective - Prog Note Date Prog Note Date: 08/12/17 - Subjective Pt reports feeling: Improved Subjective: pt report he feel much better, breathing very good, denies chest pain. I called at [facility] and tried to find a physician to accept the patient. I left my phone to the hospital supervisor inventory merchandising. I received the phone from [facility] around 10:[address] Hughes accepted the patient, and he request pt be NPO for procedure. I reported this information to our nurse supervisor inventory merchandising. The supervisor inventory merchandising told me [facility] was waiting for the bed for the patient. I talked with our supervisor inventory merchandising to ask if the bed is available to pt in [place]. The supervisor inventory merchandising said he did not receive the phone yet, he will call [facility] at 2 pm again. Current Medications - Current Medications Current Medications: Active Medications Acetaminophen (Tylenol) 650 mg PO Q4HR PRN PRN Reason: Pain 1 to 4 Albuterol/Ipratropium (Duoneb) 3 ml INH RTQID PRN PRN Reason: Shortness of Air/Wheezing Last Admin: 08/12/17 04:15 Dose: 3 ml Aspirin (Jamarcus) 325 mg PO DAILYWM [facility] Last Admin: 08/12/17 08:53 Dose: 325 mg Atorvastatin Calcium (Lipitor) 80 mg PO QPM [facility] Last Admin: 08/11/17 23:12 Dose: Not Given Azithromycin (Zithromax) 250 mg PO DAILY [facility] Last Admin: 08/12/17 08:52 Dose: 250 mg Diltiazem HCl (Cardizem Cd) 120 mg PO BID [facility] Last Admin: 08/12/17 08:52 Dose: 120 mg Enoxaparin Sodium (Lovenox) 70 mg SUBQ BID [facility] Last Admin: 08/12/17 08:59 Dose: 70 mg Famotidine (Pepcid) 20 mg PO DAILY [facility] Last Admin: 08/12/17 08:53 Dose: 20 mg Furosemide (Lasix Inj 20mg Vial) 20 mg IVP DAILY [facility] Last Admin: 08/12/17 08:57 Dose: 20 mg Guaifenesin/Codeine Phosphate (Robitussin Ac) 10 ml PO Q6H PRN PRN Reason: Cough Last Admin: 08/12/17 03:46 Dose: 10 ml Insulin Aspart (Novolog) 1 - 9 unit SUBQ 0800,1200,1700,2100 [facility] PRN Reason: Protocol Last Admin: 08/12/17 11:57 Dose: 7 unit Levalbuterol HCl (Xopenex) 1.25 mg INH RTQID [facility] Last Admin: 08/12/17 07:55 Dose: 1.25 mg Losartan Potassium (Cozaar) 50 mg PO DAILY [facility] Last Admin: 08/12/17 08:53 Dose: 50 mg Methylprednisolone Sodium Succinate (Solu-Medrol (125mg Vial)) 40 mg IVP Q8HR [facility] Morphine Sulfate (Morphine) 2 mg IVP Q2H PRN PRN Reason: Pain 8 to 10 Nitroglycerin (Nitro-Dur) 1 patch TOP DAILY [facility] Last Admin: 08/12/17 08:57 Dose: 1 patch Oxycodone HCl (Roxicodone) 5 mg PO Q4HR PRN PRN Reason: Pain 5 to 7 Polyethylene Glycol (Miralax) 17 gm PO DAILY [facility] Last Admin: 08/12/17 08:51 Dose: 17 gm Prochlorperazine Edisylate (Compazine Inj) 10 mg IVP Q6HR PRN PRN Reason: Nausea / Vomiting Sodium Chloride (Normal Saline Flush 0.9%) 10 ml IVP PRN PRN PRN Reason: NEEDED PER PROVIDER ORDERS Last Admin: 08/12/17 09:00 Dose: 30 ml Sodium Chloride (Normal Saline Flush 0.9%) 10 ml IVP Q8HR [facility] Last Admin: 08/12/17 05:22 Dose: 10 ml Sodium Chloride (Normal Saline) 3 ml INH PRN PRN PRN Reason: LEVALBUTEROL TREATMENTS Last Admin: 08/12/17 07:55 Dose: 3 ml Zolpidem Tartrate (Ambien) 5 mg PO QPM PRN PRN Reason: Insomnia Amlodipine Besylate 10 mg PO DAILY 08/10/17 Aspirin [Adult Low Dose Aspirin EC] 81 mg PO DAILY 08/10/17 Losartan Potassium 50 mg DAILY 08/10/17 Metformin HCl 500 mg PO BID 08/10/17 Nitroglycerin 0.4 mg/Hr Patch [Nitro-Dur] 1 patch DAILY 08/10/17 Omeprazole [PriLOSEC] 20 mg PO DAILY 08/10/17 Pravastatin Sodium [Pravachol] 20 mg PO DAILY 08/10/17 guaiFENesin/CODEINE [Robitussin AC] 5 - 10 ml PO Q6HR PRN 08/11/17 Objective - Vital Signs/Intake & Output Reviewed Vital Signs: Yes Vital Signs: Vital Signs x48h Temp Pulse Pulse Resp BP Pulse Ox 08/12/17 07:58 78 18 08/12/17 07:51 36.7 C 82 16 131/83 H 95 Intake & Output: Intake & Output 08/09/17 08/10/17 08/11/17 08/12/17 23:59 23:59 23:59 23:59 Intake Total 2020.0 810 Output Total 275 250 Balance 1745.0 560 - Objective General Appearance: positive: No acute distress, Alert. negative: Lethargic Eyes Bilateral: positive: Normal inspection, PERRL, No lid inflammation, Conjunctivae nml ENT: positive: ENT inspection nml, Pharynx nml, No signs of dehydration. negative: Purulent nasal drainage, Pharyngeal erythema, Oral lesions Neck: positive: Nml inspection, Thyroid nml, Trachea midline. negative: Thyromegaly, Lymphadenopathy (R), Lymphadenopathy (L), Stiff neck, Carotid bruit , Swelling/bruising, Tracheal deviation Respiratory: positive: Chest non-tender, No respiratory distress, Breath sounds nml. negative: Wheezes, Rales, Rhonchi Cardiovascular: positive: Regular rate & rhythm, No murmur, No gallop. negative : Irregularly irregular, Extrasystoles, Tachycardia, Bradycardia, Systolic murmur, Diastolic murmur Peripheral Pulses: 2+ Radial (R), 2+ Radial (L), 2+ Dorsalis pedis (R), 2+ Dorsalis pedis (L) Abdomen: positive: Non-tender, Nml bowel sounds, No distention. negative: Tenderness, Guarding, Rebound Back: positive: Nml inspection. negative: CVA tenderness (R), CVA tenderness (L ) Skin: positive: Color nml, No rash, Warm, Dry. negative: Cyanosis, Diaphoresis , Pallor, Skin rash Extremities: positive: Non-tender, Full ROM, Nml appearance. negative: Calf tenderness, Ricardo's sign/cords Neurologic/Psychiatric: positive: Oriented x3, Sensation nml, Mood/affect nml. negative: Sensory loss, Facial droop, Slurred/abnml speech, Depressed mood/ affect - Lab Results Fish Bones: 08/12/17 05:19 08/12/17 05:19 Other Labs: Lab Results x24hrs 08/12/17 08/12/17 08/12/17 Range/Units 11:23 10:59 07:30 WBC (4.8-10.8) x10^3/uL RBC (4.70-6.10) 10^6/uL Hgb (14.0-18.0) g/dL Hct (42.0-52.0) % MCV (80.0-94.0) fL MCH (27.0-31.0) pg MCHC (32.0-36.0) g/dL RDW (12.0-15.0) % Plt Count (130-450) 10^3/uL MPV (7.4-11.4) fL Neut # Lymph # [place] # Eos # Baso # Absolute Nucleated RBC Total Counted Band Neuts % (Manual) (0 - 10) % Nucleated RBC % Neutrophils # (Manual) (1.5-6.6) 10^3/uL Lymphocytes # (Manual) (1.5-3.5) 10^3/uL Monocytes # (Manual) (0.0-1.0) 10^3/uL Differential Comment Platelet Estimate (NORMAL) RBC Morph Micro Appear (NORMAL) Bld Gas Analysis Time Sample Site ABG pH (7.35-7.45) ABG pCO2 (34-45) mmHg ABG pO2 (80-100) mmHg ABG HCO3 (22.0-26.0) mmol/L ABG Total CO2 (21.0-29.0) MMOL/L ABG O2 Saturation (94-98) % ABG Oximetry Spot Check % ABG Base Excess (-2.0-3.0) mmol/L Ten Test Respiration Rate b/min Room Air Sodium (135-145) mmol/L Potassium (3.5-5.0) mmol/L Chloride (101-111) mmol/L Carbon Dioxide (21-32) mmol/L Anion Gap (6-13) BUN (6-20) mg/dL Creatinine (0.6-1.2) mg/dL Estimated GFR (MDRD) (>89) Glucose (70-100) mg/dL POC Whole Bld Glucose 316 H 221 H (70 - 100) mg/dL Calcium (8.5-10.3) mg/dL Magnesium (1.7-2.8) mg/dL Total Bilirubin (0.2-1.0) mg/dL AST (10-42) IU/L ALT (10-60) IU/L Alkaline Phosphatase (42-121) IU/L Troponin I 0.46 (<0.49) ng/mL B-Natriuretic Peptide (5-100) pg/mL Total Protein (6.7-8.2) g/dL Albumin (3.2-5.5) g/dL Globulin (2.1-4.2) g/dL Albumin/Globulin Ratio (1.0-2.2) 08/12/17 08/12/17 08/12/17 Range/Units 05:19 05:19 05:19 WBC (4.8-10.8) x10^3/uL RBC (4.70-6.10) 10^6/uL Hgb (14.0-18.0) g/dL Hct (42.0-52.0) % MCV (80.0-94.0) fL MCH (27.0-31.0) pg MCHC (32.0-36.0) g/dL RDW (12.0-15.0) % Plt Count (130-450) 10^3/uL MPV (7.4-11.4) fL Neut # Lymph # [place] # Eos # Baso # Absolute Nucleated RBC Total Counted Band Neuts % (Manual) (0 - 10) % Nucleated RBC % Neutrophils # (Manual) (1.5-6.6) 10^3/uL Lymphocytes # (Manual) (1.5-3.5) 10^3/uL Monocytes # (Manual) (0.0-1.0) 10^3/uL Differential Comment Platelet Estimate (NORMAL) RBC Morph Micro Appear (NORMAL) Bld Gas Analysis Time Sample Site ABG pH (7.35-7.45) ABG pCO2 (34-45) mmHg ABG pO2 (80-100) mmHg ABG HCO3 (22.0-26.0) mmol/L ABG Total CO2 (21.0-29.0) MMOL/L ABG O2 Saturation (94-98) % ABG Oximetry Spot Check % ABG Base Excess (-2.0-3.0) mmol/L Ten Test Respiration Rate b/min Room Air Sodium 134 L (135-145) mmol/L Potassium 3.5 (3.5-5.0) mmol/L Chloride 99 L (101-111) mmol/L Carbon Dioxide 24 (21-32) mmol/L Anion Gap 11.0 (6-13) BUN 29 H (6-20) mg/dL Creatinine 1.2 (0.6-1.2) mg/dL Estimated GFR (MDRD) 57 L (>89) Glucose 233 H (70-100) mg/dL POC Whole Bld Glucose (70 - 100) mg/dL Calcium 9.2 (8.5-10.3) mg/dL Magnesium 1.9 (1.7-2.8) mg/dL Total Bilirubin 0.7 (0.2-1.0) mg/dL AST 24 (10-42) IU/L ALT 21 (10-60) IU/L Alkaline Phosphatase 69 (42-121) IU/L Troponin I 0.59 H* (<0.49) ng/mL B-Natriuretic Peptide 343 H (5-100) pg/mL Total Protein 7.2 (6.7-8.2) g/dL Albumin 3.5 (3.2-5.5) g/dL Globulin 3.7 (2.1-4.2) g/dL Albumin/Globulin Ratio 0.9 L (1.0-2.2) 08/12/17 08/11/17 08/11/17 Range/Units 05:19 20:06 16:31 WBC 14.1 H (4.8-10.8) x10^3/uL RBC 4.30 L (4.70-6.10) 10^6/uL Hgb 12.8 L (14.0-18.0) g/dL Hct 38.3 L (42.0-52.0) % MCV 89.0 (80.0-94.0) fL MCH 29.9 (27.0-31.0) pg MCHC 33.5 (32.0-36.0) g/dL RDW 13.0 (12.0-15.0) % Plt Count 198 (130-450) 10^3/uL MPV 8.8 (7.4-11.4) fL Neut # Not Reportable Lymph # Not Reportable [place] # Not Reportable Eos # Not Reportable Baso # Not Reportable Absolute Nucleated RBC Not Reportable Total Counted 100 Band Neuts % (Manual) 21 H (0 - 10) % Nucleated RBC % Not Reportable Neutrophils # (Manual) 13.4 H (1.5-6.6) 10^3/uL Lymphocytes # (Manual) 0.4 L (1.5-3.5) 10^3/uL Monocytes # (Manual) 0.3 (0.0-1.0) 10^3/uL Differential Comment MANUAL DIFFERENTIAL Platelet Estimate NORMAL (130-450,000) (NORMAL) RBC Morph Micro Appear NORMAL APPEARANCE (NORMAL) Bld Gas Analysis Time Sample Site ABG pH (7.35-7.45) ABG pCO2 (34-45) mmHg ABG pO2 (80-100) mmHg ABG HCO3 (22.0-26.0) mmol/L ABG Total CO2 (21.0-29.0) MMOL/L ABG O2 Saturation (94-98) % ABG Oximetry Spot Check % ABG Base Excess (-2.0-3.0) mmol/L Ten Test Respiration Rate b/min Room Air Sodium (135-145) mmol/L Potassium (3.5-5.0) mmol/L Chloride (101-111) mmol/L Carbon Dioxide (21-32) mmol/L Anion Gap (6-13) BUN (6-20) mg/dL Creatinine (0.6-1.2) mg/dL Estimated GFR (MDRD) (>89) Glucose (70-100) mg/dL POC Whole Bld Glucose 269 H 316 H (70 - 100) mg/dL Calcium (8.5-10.3) mg/dL Magnesium (1.7-2.8) mg/dL Total Bilirubin (0.2-1.0) mg/dL AST (10-42) IU/L ALT (10-60) IU/L Alkaline Phosphatase (42-121) IU/L Troponin I (<0.49) ng/mL B-Natriuretic Peptide (5-100) pg/mL Total Protein (6.7-8.2) g/dL Albumin (3.2-5.5) g/dL Globulin (2.1-4.2) g/dL Albumin/Globulin Ratio (1.0-2.2) 08/11/17 08/11/17 08/11/17 Range/Units 16:13 13:12 11:21 WBC (4.8-10.8) x10^3/uL RBC (4.70-6.10) 10^6/uL Hgb (14.0-18.0) g/dL Hct (42.0-52.0) % MCV (80.0-94.0) fL MCH (27.0-31.0) pg MCHC (32.0-36.0) g/dL RDW (12.0-15.0) % Plt Count (130-450) 10^3/uL MPV (7.4-11.4) fL Neut # Lymph # [place] # Eos # Baso # Absolute Nucleated RBC Total Counted Band Neuts % (Manual) (0 - 10) % Nucleated RBC % Neutrophils # (Manual) (1.5-6.6) 10^3/uL Lymphocytes # (Manual) (1.5-3.5) 10^3/uL Monocytes # (Manual) (0.0-1.0) 10^3/uL Differential Comment Platelet Estimate (NORMAL) RBC Morph Micro Appear (NORMAL) Bld Gas Analysis Time 13:12 Sample Site RIGHT RADIAL ABG pH 7.41 (7.35-7.45) ABG pCO2 36 (34-45) mmHg ABG pO2 72 L (80-100) mmHg ABG HCO3 22.3 (22.0-26.0) mmol/L ABG Total CO2 23.4 (21.0-29.0) MMOL/L ABG O2 Saturation 95 (94-98) % ABG Oximetry Spot Check 94 % ABG Base Excess -1.8 (-2.0-3.0) mmol/L Ten Test POSITIVE Respiration Rate 28 b/min Room Air YES Sodium (135-145) mmol/L Potassium (3.5-5.0) mmol/L Chloride (101-111) mmol/L Carbon Dioxide (21-32) mmol/L Anion Gap (6-13) BUN (6-20) mg/dL Creatinine (0.6-1.2) mg/dL Estimated GFR (MDRD) (>89) Glucose (70-100) mg/dL POC Whole Bld Glucose 330 H (70 - 100) mg/dL Calcium (8.5-10.3) mg/dL Magnesium (1.7-2.8) mg/dL Total Bilirubin (0.2-1.0) mg/dL AST (10-42) IU/L ALT (10-60) IU/L Alkaline Phosphatase (42-121) IU/L Troponin I 1.24 H* (<0.49) ng/mL B-Natriuretic Peptide (5-100) pg/mL Total Protein (6.7-8.2) g/dL Albumin (3.2-5.5) g/dL Globulin (2.1-4.2) g/dL Albumin/Globulin Ratio (1.0-2.2) 08/11/17 Range/Units 07:26 WBC (4.8-10.8) x10^3/uL RBC (4.70-6.10) 10^6/uL Hgb (14.0-18.0) g/dL Hct (42.0-52.0) % MCV (80.0-94.0) fL MCH (27.0-31.0) pg MCHC (32.0-36.0) g/dL RDW (12.0-15.0) % Plt Count (130-450) 10^3/uL MPV (7.4-11.4) fL Neut # Lymph # [place] # Eos # Baso # Absolute Nucleated RBC Total Counted Band Neuts % (Manual) (0 - 10) % Nucleated RBC % Neutrophils # (Manual) (1.5-6.6) 10^3/uL Lymphocytes # (Manual) (1.5-3.5) 10^3/uL Monocytes # (Manual) (0.0-1.0) 10^3/uL Differential Comment Platelet Estimate (NORMAL) RBC Morph Micro Appear (NORMAL) Bld Gas Analysis Time Sample Site ABG pH (7.35-7.45) ABG pCO2 (34-45) mmHg ABG pO2 (80-100) mmHg ABG HCO3 (22.0-26.0) mmol/L ABG Total CO2 (21.0-29.0) MMOL/L ABG O2 Saturation (94-98) % ABG Oximetry Spot Check % ABG Base Excess (-2.0-3.0) mmol/L Ten Test Respiration Rate b/min Room Air Sodium (135-145) mmol/L Potassium (3.5-5.0) mmol/L Chloride (101-111) mmol/L Carbon Dioxide (21-32) mmol/L Anion Gap (6-13) BUN (6-20) mg/dL Creatinine (0.6-1.2) mg/dL Estimated GFR (MDRD) (>89) Glucose (70-100) mg/dL POC Whole Bld Glucose 203 H (70 - 100) mg/dL Calcium (8.5-10.3) mg/dL Magnesium (1.7-2.8) mg/dL Total Bilirubin (0.2-1.0) mg/dL AST (10-42) IU/L ALT (10-60) IU/L Alkaline Phosphatase (42-121) IU/L Troponin I (<0.49) ng/mL B-Natriuretic Peptide (5-100) pg/mL Total Protein (6.7-8.2) g/dL Albumin (3.2-5.5) g/dL Globulin (2.1-4.2) g/dL Albumin/Globulin Ratio (1.0-2.2) Assessment/Plan - Problem List (1) Dyspnea Impression: (1) Dyspnea Impression: pt has great improvement, now room air with SO2 96% reduce of solu-medrol continue INH and RT treatment CTA reveals emphysematous changing IVF steroid Xopenex INH Duoneb INH RT treatment, PRN O2 blood gas as needed to closely monitor breathing status (2) Bronchitis Impression: much better for cough, pt had steroid, so WBC has slight elevated. change AZithyromycin to PO cough, with slight elevated WBC, CTA reveals inflammatory Azithyomycin Breathing treatment PRN supplement of O2 (3) Troponin level elevated Impression: pt's troponin is down significantly. pt still has no chest pain and cardiac distress. pt is accepted by [facility] [place], transfer to this hospital pt's troponin level continue to elevate. Pt is hx of DM2. Although Pt is asymptomatic, no chest pain or discomforted. EKG without significant changing to previous one. Concern if non ST MD. Called clinical study manager Dr Doshi, he recommend pt be transfered. Called [facility] and , wait for call back, and transfer the information to night hospitalist team order once Aspirin 325 mg EKG PRN Nitrate PRN tele, vital closely monitor (4) Impaired left ventricular function Impression: ECHO today reviewed, impaired LVF and RVF. Pt with slight elevated BNP IV lasix 20 mg daily lab, I & O. Aspirin 325 mg (5) Multifocal atrial tachycardia Impression: continue cardizem, tele monitor, vial monitor (6) DM2 (diabetes mellitus, type 2) Impression: hold metformin slide scale, pt with steroid, glucose may increase check A1C (7) HTN (hypertension)
[2017-08-12 13:39] VITALS: BP 110/68
[2017-08-13] MEDS ORDERED: metFORMIN 500 MG TABLET PO SCH (08:00)
== END 2017-08-12 15:51 | disposition short-term general hospital (02) | DRG 191 ==
LOC: EDUNIT# → ED 03:41 → MS2 06:52 → ED 07:11
PROVIDERS: ADMIT Internal Medicine; ATTEND Nurse Practitioner Gerontology
DX: J40 Bronchitis, not specified as acute or chronic (principal); R06.00 Dyspnea, unspecified; J44.1 Chronic obstructive pulmonary disease with (acute) exacerbation; I47.1 Supraventricular tachycardia; Z79.84 Long term (current) use of oral hypoglycemic drugs; J44.0 Chronic obstructive pulmonary disease with (acute) lower respiratory infection; J20.9 Acute bronchitis, unspecified; R79.89 Other specified abnormal findings of blood chemistry; E11.42 Type 2 diabetes mellitus with diabetic polyneuropathy; I10 Essential (primary) hypertension; I25.10 Atherosclerotic heart disease of native coronary artery without angina pectoris; I51.7 Cardiomegaly; Z96.651 Presence of right artificial knee joint; Z95.1 Presence of aortocoronary bypass graft; Z79.51 Long term (current) use of inhaled steroids; Z79.82 Long term (current) use of aspirin; Z79.899 Other long term (current) drug therapy
CPT/HCPCS: 36415; 36600; 71275; 80053; 81003; 82803; 83036; 83690; 83735; 83880; 84484; 85025; 85610; 87275; 87276; 93005; 93306; 94640; 96374; 99285

== ENCOUNTER 2017-08-12 15:40 | Outpatient (CLI) | payer MEDICARE, OTHER | END 2017-08-12 15:41 | disposition short-term general hospital (02) | LOC: EMS 15:40 | PROVIDERS: ATTEND Surgery | DX: R06.02 Shortness of breath (principal) | CPT/HCPCS: A0170; A0425; A0426 ==

== ENCOUNTER 2017-08-24 08:00 | Outpatient (CLI) | payer MEDICARE, OTHER ==
[2017-08-24 20:19] LABS: CALCIUM 8.8 mg/dL (8.5-10.3); CREATININE 1.4 mg/dL (0.6-1.2)
== END 2017-08-24 08:01 | disposition home or self-care (01) ==
LOC: LAB.R 08:00
PROVIDERS: ATTEND Internal Medicine
DX: I25.10 Atherosclerotic heart disease of native coronary artery without angina pectoris (principal)
CPT/HCPCS: 80048

== ENCOUNTER 2018-10-10 08:50 | Outpatient (CLI) | payer MEDICARE, OTHER ==
[2018-10-10 18:54] LABS: HB2 TOTAL 14.5 g/dL; HEMOGLOBIN A1C 0.67 g/dL; HEMOGLOBIN A1C % 6.4 % (4.6-6.2)
[2018-10-10 19:06] LABS: ALBUMIN 4.2 g/dL (3.2-5.5); ALBUMIN/GLOBULIN RATIO 1.7 (1.0-2.2); ALKALINE PHOSPHATASE 106 IU/L (42-121); ALT ALANINE AMINOTRANSFERASE 12 IU/L (10-60); AST ASPARTATE AMINOTRANSFERASE 16 IU/L (10-42); BILIRUBIN,TOTAL 1.1 mg/dL (0.2-1.0); BUN - BLOOD UREA NITROGEN 21 mg/dL (6-20); CARBON DIOXIDE - CO2 23 mmol/L (21-32); CHLORIDE 104 mmol/L (101-111); CHOL/HDL RATIO 2.5 (<5.0); CHOLESTEROL 105 mg/dL; GFR - MDRD 71 (>89); GLUCOSE 134 mg/dL (70-100); HDL CHOLESTEROL 42 mg/dL; LDL CHOLESTEROL,CALCULATED 43 mg/dL; SODIUM 135 mmol/L (135-145); TOTAL PROTEIN 6.7 g/dL (6.7-8.2); VLDL CHOLESTEROL 20 mg/dL
[2018-10-10 19:33] LABS: BASOPHILS # (AUTO) 0.1 10^3/uL (0.0-0.1); BASOPHILS % (AUTO) 0.8 %; EOSINOPHILS # (AUTO) 0.2 10^3/uL (0.0-0.7); EOSINOPHILS % (AUTO) 2.2 %; HGB - HEMOGLOBIN 13.7 g/dL (14.0-18.0); LYMPHOCYTES # (AUTO) 1.8 10^3/uL (1.5-3.5); LYMPHOCYTES % (AUTO) 22.5 %; MEAN CORPUSCULAR HEMOGLOBIN 30.2 pg (27.0-31.0); MEAN CORPUSCULAR HGB CONC 33.3 g/dL (32.0-36.0); MEAN CORPUSCULAR VOLUME 90.9 fL (80.0-94.0); MEAN PLATELET VOLUME 10.9 fL (7.4-11.4); MONOCYTES # (AUTO) 0.7 10^3/uL (0.0-1.0); MONOCYTES % (AUTO) 8.4 %; NEUTROPHILS # (AUTO) 5.3 10^3/uL (1.5-6.6); NEUTROPHILS % (AUTO) 66.1 %; RED BLOOD COUNT 4.52 10^6/uL (4.70-6.10); RED CELL DISTRIBUTION WIDTH 14.3 % (12.0-15.0)
== END 2018-10-10 23:59 | disposition home or self-care (01) ==
LOC: LAB.S 08:50
PROVIDERS: ATTEND Internal Medicine
DX: G62.9 Polyneuropathy, unspecified (principal); I25.10 Atherosclerotic heart disease of native coronary artery without angina pectoris; E11.9 Type 2 diabetes mellitus without complications; I10 Essential (primary) hypertension
CPT/HCPCS: 36415; 80053; 80061; 83036; 83721; 84443; 85025

== ENCOUNTER 2019-03-01 14:48 | Emergency (ER) | payer MEDICARE ==
--- NOTE | 2019-03-01 15:17 | ED Physician Documentation ---
History of Present Illness - Stated complaint Stated Complaint: SOA/CHEST PAINS - Chief complaint Chief Complaint: Cardiac - History obtained from History obtained from: Patient - History of Present Illness Timing: Last night Pain level max: 3 Pain level now: 0 - Additonal information Additional information: 88-year-old male states he has had a cough for the past 2 weeks, did have some left upper chest pain last night lasting approximately 20 minutes. Has a history of 3 cardiac stents approximately a year ago at [facility] in [place]. Also has a history of "open heart surgery" approximately 20 years ago. He states that his doctor did an EKG and a chest x-ray today and sent him here for evaluation. He is asymptomatic currently. No fevers. Nothing makes it better or worse. The pain was while he was in bed. Review of Systems Ten Systems: 10 systems reviewed and negative Constitutional: denies: Fever, Chills Throat: denies: Sore throat Respiratory: denies: Cough GI: denies: Abdominal Pain, Nausea, Vomiting, Diarrhea Skin: denies: Rash Musculoskeletal: denies: Neck pain, Back pain Neurologic: denies: Headache PD PAST MEDICAL HISTORY - Past Medical History Cardiovascular: Hypertension Respiratory: COPD, Emphysema Endocrine/Autoimmune: Type 2 diabetes GI: GERD : None HEENT: None Psych: None Musculoskeletal: Osteoarthritis, Other Derm: None - Past Surgical History Past Surgical History: Yes Ortho: Knee replacement Cardiovascular: CABG - Present Medications Home Medications: Ambulatory Orders Medication Instructions Recorded Confirmed Albuterol Sulfate [Proventil Hfa 1 - 2 puffs IH Q4H PRN #1 08/10/17 08/11/17 Inhaler] [email or web address] Amlodipine Besylate 10 mg PO DAILY 08/10/17 08/11/17 Aspirin [Adult Low Dose Aspirin EC] 81 mg PO DAILY 08/10/17 08/11/17 Azithromycin [Zithromax] 250 mg PO DAILY #4 tablet 08/10/17 08/11/17 Losartan Potassium 50 mg DAILY 08/10/17 08/11/17 Metformin HCl 500 mg PO BID 08/10/17 08/11/17 Nitroglycerin 0.4 mg/Hr Patch 1 patch DAILY 08/10/17 08/11/17 [Nitro-Dur] Omeprazole [PriLOSEC] 20 mg PO DAILY 08/10/17 08/11/17 Pravastatin Sodium [Pravachol] 20 mg PO DAILY 08/10/17 08/11/17 guaiFENesin/CODEINE [Robitussin AC] 5 - 10 ml PO Q6H PRN #120 ml 08/10/17 08/11/17 guaiFENesin/CODEINE [Robitussin AC] 5 - 10 ml PO Q6HR PRN 08/11/17 08/11/17 - Allergies Allergies/Adverse Reactions: Allergies Allergy/AdvReac Type Severity Reaction Status Date / Time eggs Allergy Unknown Uncoded 03/01/19 14:52 - Social History Does the pt smoke?: No Smoking Status: Never smoker Does the pt drink ETOH?: Yes Does the pt have substance abuse?: No - Immunizations Immunizations are current?: Yes - POLST Patient has POLST: No PD ED PE NORMAL - Vitals Vital signs reviewed: Yes - General General: Alert and oriented X 3, No acute distress, Well developed/nourished - HEENT HEENT: PERRL, Moist mucous membranes - Neck Neck: Supple, no meningeal sign - Cardiac Cardiac: RRR, Strong equal pulses - Respiratory Respiratory: No respiratory distress, Clear bilaterally - Abdomen Abdomen: Soft, Non tender, Non distended - Back Back: No spinal TTP - Derm Derm: Warm and dry - Extremities Extremities: No edema, No calf tenderness / cord - Neuro Neuro: Alert and oriented X 3 - Psych Psych: Normal mood, Normal affect Results - Vitals Vitals: Vital Signs - 24 hr 03/01/19 03/01/19 14:49 16:48 Temperature 37 C 37.8 C H Heart Rate 87 77 Respiratory 20 22 Rate Blood Pressure 145/90 H 139/79 H O2 Saturation 98 96 Oxygen O2 Source Room air - EKG (time done) 1457 Rate: Rate (enter#) (82) Rhythm: NSR [place]: Normal Intervals: Normal VA, LBBB QRS: Normal - Labs Labs: Laboratory Tests 03/01/19 03/01/19 03/01/19 16:19 16:19 16:19 WBC 5.8 RBC 4.54 L Hgb 13.2 L Hct 40.4 L MCV 89.1 MCH 29.1 MCHC 32.6 RDW 14.5 Plt Count 171 MPV 8.8 Neut # (Auto) 3.8 Lymph # (Auto) 1.2 L [place] # (Auto) 0.7 Eos # (Auto) 0.1 Baso # (Auto) 0.0 Absolute Nucleated RBC 0.01 Nucleated RBC % 0.1 Sodium 139 Potassium 4.0 Chloride 101 Carbon Dioxide 27 Anion Gap 11.0 BUN 17 Creatinine 1.1 Estimated GFR (MDRD) 63 L Glucose 114 H Calcium 8.9 Total Bilirubin 0.8 AST 18 ALT 18 Alkaline Phosphatase 95 Troponin I < 0.04 Total Protein 6.7 Albumin 3.8 Globulin 2.9 Albumin/Globulin Ratio 1.3 Lipase 28 Urine Color Urine Clarity Urine pH Ur Specific [place] Urine Protein Urine Glucose (UA) Urine Ketones Urine Occult Blood Urine Nitrite Urine Bilirubin Urine Urobilinogen Ur Leukocyte Esterase Ur Microscopic Review Urine Culture Comments 03/01/19 16:28 WBC RBC Hgb Hct MCV MCH MCHC RDW Plt Count MPV Neut # (Auto) Lymph # (Auto) [place] # (Auto) Eos # (Auto) Baso # (Auto) Absolute Nucleated RBC Nucleated RBC % Sodium Potassium Chloride Carbon Dioxide Anion Gap BUN Creatinine Estimated GFR (MDRD) Glucose Calcium Total Bilirubin AST ALT Alkaline Phosphatase Troponin I Total Protein Albumin Globulin Albumin/Globulin Ratio Lipase Urine Color YELLOW Urine Clarity CLEAR Urine pH 6.0 Ur Specific [place] 1.020 Urine Protein TRACE Urine Glucose (UA) NEGATIVE Urine Ketones TRACE Urine Occult Blood NEGATIVE Urine Nitrite NEGATIVE Urine Bilirubin NEGATIVE Urine Urobilinogen 0.2 (NORMAL) Ur Leukocyte Esterase NEGATIVE Ur Microscopic Review NOT INDICATED Urine Culture Comments NOT INDICATED - Rads (name of study) Chest x-ray Radiology: Prelim report reviewed, EMP read contemporaneously, See rad report (No focal consolidation. . Increased interstitial markings which are nonspecific but can be seen in the setting of reactive airways disease, bronchitis and viral infection. ) PD MEDICAL DECISION MAKING - ED course Complexity details: reviewed results, re-evaluated patient, considered differential, d/w patient ED course: 88-year-old male sent for atypical chest pain last night as well as a left bundle branch block on his EKG. This is similar to the EKG he had after stent placement in 2017. These records were obtained from [facility] in [place]. He has had no symptoms today. Negative troponin. We will have him follow-up with his doctor for further care. Patient counseled regarding signs and symptoms for which I believe and urgent re-evaluation would be necessary. Patient with good understanding of and agreement to plan and is comfortable going home at this time This document was made in part using voice recognition software. While efforts are made to proofread this document, sound alike and grammatical errors may occur. Departure - Departure Disposition: 01 Home, Self Care Clinical Impression: Atypical chest pain, LBBB (left bundle branch block) Condition: Good Instructions: ED Chest Pain Atypical Unkn Cause Follow-Up: Shorty Huitron MD [Primary Care Provider] - Within 1 week Comments: Return if you worsen. Your x-ray does not show any acute abnormalities. There is no evidence of a heart attack within the last 24 hours. Your EKG does show a left bundle branch block which does appear old based on your prior EKGs. Discharge Date/Time: 03/01/19 17:06
--- NOTE | 2019-03-01 15:34 | XRAY Report ---
Reason: chest pain/cough Procedure Date: 03/01/2019 Accession Number: [id number] / [id number] Procedure: XR - Chest 1 View X-Ray CPT Code: 22284 FULL RESULT: EXAM: CHEST RADIOGRAPHY EXAM DATE: 03/01/2019 03:24 PM. CLINICAL HISTORY: Chest pain. Cough. COMPARISON: CHEST 2 VIEW PA/LAT 08/10/2017 5:03 PM. TECHNIQUE: 1 view. FINDINGS: Lungs/Pleura: Increased interstitial markings. No focal opacities evident. No pleural effusion. No pneumothorax. Mediastinum: Patient is status post median sternotomy and CABG. The pulmonary vasculature is indistinct. Other: None. IMPRESSION: 1. No focal consolidation. 2. Increased interstitial markings which are nonspecific but can be seen in the setting of reactive airways disease, bronchitis and viral infection. RADIA
[2019-03-01 16:25] LABS: BASOPHILS % (AUTO) 0.5 %; EOSINOPHILS # (AUTO) 0.1 10^3/uL (0.0-0.7); HGB - HEMOGLOBIN 13.2 g/dL (14.0-18.0); LYMPHOCYTES # (AUTO) 1.2 10^3/uL (1.5-3.5); LYMPHOCYTES % (AUTO) 19.8 %; MEAN CORPUSCULAR HEMOGLOBIN 29.1 pg (27.0-31.0); MEAN CORPUSCULAR HGB CONC 32.6 g/dL (32.0-36.0); MEAN CORPUSCULAR VOLUME 89.1 fL (80.0-94.0); MEAN PLATELET VOLUME 8.8 fL (7.4-11.4); MONOCYTES # (AUTO) 0.7 10^3/uL (0.0-1.0); MONOCYTES % (AUTO) 12.8 %; NEUTROPHILS # (AUTO) 3.8 10^3/uL (1.5-6.6); NEUTROPHILS % (AUTO) 64.9 %; PLT - PLATELET COUNT 171 10^3/uL (130-450); RED BLOOD COUNT 4.54 10^6/uL (4.70-6.10); RED CELL DISTRIBUTION WIDTH 14.5 % (12.0-15.0); WHITE BLOOD COUNT 5.8 x10^3/uL (4.8-10.8)
[2019-03-01 16:37] LABS: ALBUMIN 3.8 g/dL (3.2-5.5); ALBUMIN/GLOBULIN RATIO 1.3 (1.0-2.2); BILIRUBIN,TOTAL 0.8 mg/dL (0.2-1.0); CALCIUM 8.9 mg/dL (8.5-10.3); CREATININE 1.1 mg/dL (0.6-1.2); TOTAL PROTEIN 6.7 g/dL (6.7-8.2)
[2019-03-01 16:50] VITALS: BP 139/79
[2019-03-01 16:52] LABS: BILIRUBIN,URINE NEGATIVE (NEGATIVE); GLUCOSE, URINE (UA) NEGATIVE (NEGATIVE); KETONES,URINE (UA) TRACE mg/dL (NEGATIVE); LEUKOCYTE ESTERASE, URINE NEGATIVE (NEGATIVE); NITRITE,URINE NEGATIVE (NEGATIVE); OCCULT BLOOD,URINE NEGATIVE (NEGATIVE); PROTEIN,URINE TRACE mg/dL (NEGATIVE); UROBILINOGEN,URINE 0.2 (NORMAL) E.U./dL (NORMAL)
[2019-03-01 16:54] LABS: CLARITY,URINE CLEAR (CLEAR)
== END 2019-03-01 17:06 | disposition home or self-care (01) ==
LOC: ED 14:48
DX: R07.89 Other chest pain (principal); I44.7 Left bundle-branch block, unspecified; Z95.5 Presence of coronary angioplasty implant and graft; Z95.1 Presence of aortocoronary bypass graft; I10 Essential (primary) hypertension; J43.9 Emphysema, unspecified; E11.9 Type 2 diabetes mellitus without complications; Z79.84 Long term (current) use of oral hypoglycemic drugs; Z79.82 Long term (current) use of aspirin
CPT/HCPCS: 36415; 71045; 80053; 81001; 81003; 83690; 84484; 85025; 87086; 93005; 99284

== ENCOUNTER 2019-03-21 15:45 | Outpatient (CLI) | payer MEDICARE | END 2019-03-21 15:46 | disposition EMS.NT | LOC: EMS 15:45 | PROVIDERS: ATTEND Surgery | DX: Z03.89 Encounter for observation for other suspected diseases and conditions ruled out (principal) ==

== ENCOUNTER 2019-03-22 11:51 | Outpatient (CLI) | payer MEDICARE, OTHER | END 2019-03-22 11:52 | disposition critical access hospital (66) | LOC: EMS 11:51 | PROVIDERS: ATTEND Surgery | DX: S29.9XXA Unspecified injury of thorax, initial encounter (principal); S09.90XA Unspecified injury of head, initial encounter; W01.10XA Fall on same level from slipping, tripping and stumbling with subsequent striking against unspecified object, initial encounter; Y92.002 Bathroom of unspecified non-institutional (private) residence as the place of occurrence of the external cause | CPT/HCPCS: A0425; A0427 ==

== ENCOUNTER 2019-03-22 12:32 | Observation (INO) | payer MEDICARE, OTHER ==
--- NOTE | 2019-03-22 12:45 | ED Physician Documentation ---
PD HPI BACK INJURY - Stated complaint Stated Complaint: FALL - History obtained from History obtained from: Patient, EMS - History of Present Illness Type of injury: Fall (88-year-old gentleman on Plavix had a trip and fall last night at home hitting the left forehead and left side of the back. Today the back pain is worse in nonfunctional. Although on arrival he had 200 mcg of fentanyl and declines further pain medication. There is no loss of consciousness. He does note some right foot pain as well.) Where injury occurred: Home Timing - onset: Last night Review of Systems Ten Systems: 10 systems reviewed and negative Constitutional: reports: Reviewed and negative Throat: reports: Reviewed and negative Cardiac: reports: Reviewed and negative Respiratory: reports: Reviewed and negative PD PAST MEDICAL HISTORY - Past Medical History Cardiovascular: Hypertension Respiratory: COPD, Emphysema Endocrine/Autoimmune: Type 2 diabetes GI: GERD : None HEENT: None Psych: None Musculoskeletal: Osteoarthritis, Other Derm: None - Past Surgical History Past Surgical History: Yes Ortho: Knee replacement Cardiovascular: CABG - Present Medications Home Medications: Ambulatory Orders Medication Instructions Recorded Confirmed Aspirin [Adult Low Dose Aspirin EC] 81 mg PO DAILY 08/10/17 03/22/19 Losartan Potassium 50 mg DAILY 08/10/17 03/22/19 Metformin HCl 500 mg PO BID 08/10/17 03/22/19 Nitroglycerin 0.4 mg/Hr Patch 1 patch DAILY 08/10/17 03/22/19 [Nitro-Dur] Atorvastatin Calcium [Lipitor] 40 mg PO DAILY 03/22/19 03/22/19 Clopidogrel [Plavix] 75 mg PO ONCE 03/22/19 03/22/19 Pantoprazole [Protonix] 40 mg PO DAILY 03/22/19 03/22/19 diltiaZEM [Cardizem] 60 mg PO ONCE 03/22/19 03/22/19 - Allergies Allergies/Adverse Reactions: Allergies Allergy/AdvReac Type Severity Reaction Status Date / Time eggs Allergy Unknown Uncoded 03/22/19 12:41 - Social History Does the pt smoke?: No Smoking Status: Never smoker Does the pt drink ETOH?: Yes Does the pt have substance abuse?: No - Immunizations Immunizations are current?: Yes - POLST Patient has POLST: No PD ED PE NORMAL - Vitals Vital signs reviewed: Yes - General General: Alert and oriented X 3, No acute distress - HEENT HEENT: PERRL (Small pupils, presumed from the fentanyl given on route), Pharynx benign - Neck Neck: Supple, no meningeal sign, No bony TTP - Cardiac Cardiac: RRR, No murmur - Respiratory Respiratory: No respiratory distress, Clear bilaterally - Abdomen Abdomen: Normal bowel sounds, Soft, Non tender - Back Back: Other (Mild tenderness to the lower thoracic and upper lumbar spine, there is an ecchymosis over the ribs low down on the left mid scapular line with rib tenderness there.) - Derm Derm: Normal color, Warm and dry - Extremities Extremities: Other (Tender about fourth metatarsal of the right foot dorsally with ecchymosis there, kind of hard to localize because of his underlying neuropathy. No other extremity tenderness.) - Neuro Neuro: Alert and oriented X 3, Normal speech - Psych Psych: Normal mood, Normal affect Results - Vitals Vitals: Vital Signs - 24 hr 03/22/19 03/22/19 03/22/19 12:35 13:00 13:30 Temperature 36.3 C L Heart Rate 90 83 83 Respiratory 14 20 Rate Blood Pressure 163/105 H 143/77 H 137/79 H O2 Saturation 95 93 93 03/22/19 03/22/19 14:00 15:02 Temperature Heart Rate 81 85 Respiratory 20 20 Rate Blood Pressure 122/85 H 123/73 O2 Saturation 93 92 Oxygen O2 Source Room air - Labs Labs: Laboratory Tests 03/22/19 03/22/19 03/22/19 12:46 12:46 12:46 WBC 8.2 RBC 4.83 Hgb 14.2 Hct 43.1 MCV 89.2 MCH 29.3 MCHC 32.9 RDW 14.2 Plt Count 161 MPV 9.4 Neut # (Auto) 5.8 Lymph # (Auto) 1.1 L [place] # (Auto) 0.8 Eos # (Auto) 0.3 Baso # (Auto) 0.1 Absolute Nucleated RBC 0.00 Nucleated RBC % 0.0 PT 12.6 INR 1.1 Sodium 136 Potassium 4.2 Chloride 101 Carbon Dioxide 23 Anion Gap 12.0 BUN 25 H Creatinine 1.1 Estimated GFR (MDRD) 63 L Glucose 153 H Calcium 9.1 Total Bilirubin 1.3 H AST 21 ALT 16 Alkaline Phosphatase 105 Total Protein 7.2 Albumin 4.1 Globulin 3.1 Albumin/Globulin Ratio 1.3 Lipase 33 Urine Color Urine Clarity Urine pH Ur Specific [place] Urine Protein Urine Glucose (UA) Urine Ketones Urine Occult Blood Urine Nitrite Urine Bilirubin Urine Urobilinogen Ur Leukocyte Esterase Ur Microscopic Review Urine Culture Comments 03/22/19 15:55 WBC RBC Hgb Hct MCV MCH MCHC RDW Plt Count MPV Neut # (Auto) Lymph # (Auto) [place] # (Auto) Eos # (Auto) Baso # (Auto) Absolute Nucleated RBC Nucleated RBC % PT INR Sodium Potassium Chloride Carbon Dioxide Anion Gap BUN Creatinine Estimated GFR (MDRD) Glucose Calcium Total Bilirubin AST ALT Alkaline Phosphatase Total Protein Albumin Globulin Albumin/Globulin Ratio Lipase Urine Color YELLOW Urine Clarity CLEAR Urine pH 7.0 Ur Specific [place] <=1.005 Urine Protein NEGATIVE Urine Glucose (UA) NEGATIVE Urine Ketones NEGATIVE Urine Occult Blood NEGATIVE Urine Nitrite NEGATIVE Urine Bilirubin NEGATIVE Urine Urobilinogen 0.2 (NORMAL) Ur Leukocyte Esterase NEGATIVE Ur Microscopic Review NOT INDICATED Urine Culture Comments NOT INDICATED - Rads (name of study) CT Head/Cspine/Chest/Abd/Pelvis/Lspine and T Spine Radiology: EMP read contemporaneously (Notable for left posterior ninth through 12th rib fractures,) R foot XR Radiology: EMP read contemporaneously (normal) PD MEDICAL DECISION MAKING - ED course ED course: This is an 88-year-old gentleman who had a ground-level fall last night. He is on Plavix and injured his head. He was thoroughly imaged and the only major inj uries found were or rib fractures of the posterior left chest wall. His pain was difficult to control here and he remains nonfunctional despite divided doses of pain medication and I called to Dr. Zapien for observation at 4:26 PM. Departure - Departure Disposition: ED Place in Observation Clinical Impression: HTN (hypertension) Qualifiers: Hypertension type: essential hypertension Qualified Code(s): I10 - Essential (primary) hypertension Fracture of rib Qualifiers: Encounter type: initial encounter Rib fracture type: multiple ribs Fracture type: closed Laterality: left Qualified Code(s): S22.42XA - Multiple fractures of ribs, left side, initial encounter for closed fracture Contusion of chest wall Qualifiers: Encounter type: initial encounter Laterality: left Qualified Code(s): S20.212A - Contusion of left front wall of thorax, initial encounter Head injury Qualifiers: Encounter type: initial encounter Qualified Code(s): S09.90XA - Unspecified injury of head, initial encounter Injury of back Qualifiers: Encounter type: initial encounter Qualified Code(s): S39.92XA - Unspecified injury of lower back, initial encounter Contusion of right foot Qualifiers: Encounter type: initial encounter Qualified Code(s): S90.31XA - Contusion of right foot, initial encounter Condition: Serious
[2019-03-22 12:52] LABS: BASOPHILS # (AUTO) 0.1 10^3/uL (0.0-0.1); BASOPHILS % (AUTO) 1.3 %; EOSINOPHILS # (AUTO) 0.3 10^3/uL (0.0-0.7); EOSINOPHILS % (AUTO) 4.3 %; HGB - HEMOGLOBIN 14.2 g/dL (14.0-18.0); LYMPHOCYTES # (AUTO) 1.1 10^3/uL (1.5-3.5); LYMPHOCYTES % (AUTO) 13.5 %; MEAN CORPUSCULAR HEMOGLOBIN 29.3 pg (27.0-31.0); MEAN CORPUSCULAR HGB CONC 32.9 g/dL (32.0-36.0); MEAN CORPUSCULAR VOLUME 89.2 fL (80.0-94.0); MEAN PLATELET VOLUME 9.4 fL (7.4-11.4); MONOCYTES # (AUTO) 0.8 10^3/uL (0.0-1.0); MONOCYTES % (AUTO) 9.5 %; NEUTROPHILS # (AUTO) 5.8 10^3/uL (1.5-6.6); NEUTROPHILS % (AUTO) 71.4 %; PLT - PLATELET COUNT 161 10^3/uL (130-450); RED BLOOD COUNT 4.83 10^6/uL (4.70-6.10); RED CELL DISTRIBUTION WIDTH 14.2 % (12.0-15.0); WHITE BLOOD COUNT 8.2 x10^3/uL (4.8-10.8)
[2019-03-22 12:58] LABS: INR 1.1 (0.8-1.2); PT - PROTHROMBIN TIME 12.6 secs (9.9-12.6)
[2019-03-22 13:05] LABS: ALBUMIN 4.1 g/dL (3.2-5.5); ALBUMIN/GLOBULIN RATIO 1.3 (1.0-2.2); BILIRUBIN,TOTAL 1.3 mg/dL (0.2-1.0); CALCIUM 9.1 mg/dL (8.5-10.3); CREATININE 1.1 mg/dL (0.6-1.2); TOTAL PROTEIN 7.2 g/dL (6.7-8.2)
--- NOTE | 2019-03-22 13:21 | XRAY Report ---
Reason: foot inj Procedure Date: 03/22/2019 Accession Number: [id number] / [id number] Procedure: XR - Foot 3 View RT CPT Code: FULL RESULT: EXAM: RIGHT FOOT RADIOGRAPHY EXAM DATE: 03/22/2019 01:11 PM. CLINICAL HISTORY: Foot injury. COMPARISON: None. TECHNIQUE: 3 views. FINDINGS: Bones: The bones are qualitatively osteopenic; this limits evaluation for underlying fractures or masses. Joints: Normal. No subluxations. Soft Tissues: Vascular calcifications are noted. IMPRESSION: Osteopenia with no acute fracture or dislocation detected. RADIA
[2019-03-22] MEDS ORDERED: IOVERSOL 320 100 ML VIAL IVP ONE ×2 (14:28→15:04)
[2019-03-22] MEDS ORDERED: HYDROmorphone 1 MG/ML CARPUJECT IVP STA ×2 (14:51→15:45)
[2019-03-22] MEDS ORDERED: SODIUM CHLORIDE 0.9% 1,000 ML IV ONE (14:51)
--- NOTE | 2019-03-22 15:38 | CT Report ---
Reason: fall with back pain/contusion, L side, head inj Procedure Date: 03/22/2019 Accession Number: [id number] / [id number] Procedure: CT - HEAD WO CPT Code: FULL RESULT: EXAM: CT HEAD. CT SCAN OF THE CERVICAL SPINE. EXAM DATE: 03/22/2019 02:14 PM. CLINICAL HISTORY: Fall with back pain/contusion, left side. Head injury. COMPARISON: None. TECHNIQUE: Noncontrast axial sections through the head and cervical spine. Reformats: Sagittal and coronal of the head, coronal and sagittal of the cervical spine. In accordance with CT protocol optimization, one or more of the following dose reduction techniques were utilized for this exam: automated exposure control, adjustment of mA and/or KV based on patient size, or use of iterative reconstructive technique. FINDINGS CT HEAD: Parenchyma: No intraparenchymal hemorrhage. No evidence of mass or midline shift. Rosenberg-white differentiation is distinct. Extraaxial Spaces: Basal cisterns are preserved. No subdural or epidural collections identified. Ventricles: Normal in size and position. Sinuses and orbits: Imaged paranasal sinuses, orbits, and mastoids show no significant abnormality. Bones: No evidence of fracture or calvarial defect. Other: None. FINDINGS CT CERVICAL SPINE: Alignment: Atlantooccipital relationship is preserved. 3-column alignment remains. No scoliosis or spondylolisthesis. Bones: No fracture or bone lesion. Interspace Levels/Facets: There are multilevel degenerative changes including loss of disk space height from C3 through C7 which is most pronounced at C5-C6. Additionally, there is facet arthropathy and lateral mass hypertrophy at multiple levels. Spinal Canal: Normal. Musculature: Normal. No fatty atrophy. Other: The paravertebral and prevertebral soft tissues are unremarkable. The lung apices are clear. IMPRESSION: Head CT: Negative. Cervical Spine CT: Negative. RADIA
--- NOTE | 2019-03-22 15:38 | CT Report ---
Reason: fall with back pain/contusion, L side, head inj Procedure Date: 03/22/2019 Accession Number: [id number] / [id number] Procedure: CT - CERVICAL SPINE WO CPT Code: FULL RESULT: EXAM: CT HEAD. CT SCAN OF THE CERVICAL SPINE. EXAM DATE: 03/22/2019 02:14 PM. CLINICAL HISTORY: Fall with back pain/contusion, left side. Head injury. COMPARISON: None. TECHNIQUE: Noncontrast axial sections through the head and cervical spine. Reformats: Sagittal and coronal of the head, coronal and sagittal of the cervical spine. In accordance with CT protocol optimization, one or more of the following dose reduction techniques were utilized for this exam: automated exposure control, adjustment of mA and/or KV based on patient size, or use of iterative reconstructive technique. FINDINGS CT HEAD: Parenchyma: No intraparenchymal hemorrhage. No evidence of mass or midline shift. Rosenberg-white differentiation is distinct. Extraaxial Spaces: Basal cisterns are preserved. No subdural or epidural collections identified. Ventricles: Normal in size and position. Sinuses and orbits: Imaged paranasal sinuses, orbits, and mastoids show no significant abnormality. Bones: No evidence of fracture or calvarial defect. Other: None. FINDINGS CT CERVICAL SPINE: Alignment: Atlantooccipital relationship is preserved. 3-column alignment remains. No scoliosis or spondylolisthesis. Bones: No fracture or bone lesion. Interspace Levels/Facets: There are multilevel degenerative changes including loss of disk space height from C3 through C7 which is most pronounced at C5-C6. Additionally, there is facet arthropathy and lateral mass hypertrophy at multiple levels. Spinal Canal: Normal. Musculature: Normal. No fatty atrophy. Other: The paravertebral and prevertebral soft tissues are unremarkable. The lung apices are clear. IMPRESSION: Head CT: Negative. Cervical Spine CT: Negative. RADIA
[2019-03-22] MEDS ORDERED: KETOROLAC 30 MG/ML VIAL IVP STA (15:45)
--- NOTE | 2019-03-22 15:54 | CT Report ---
Reason: fall with back pain/contusion, L side, head inj Procedure Date: 03/22/2019 Accession Number: [id number] / [id number] Procedure: CT - THORACIC SPINE WO CPT Code: FULL RESULT: EXAM: CT CHEST, ABDOMEN AND PELVIS AND THORACIC SPINE AND LUMBAR SPINE EXAM DATE: 03/22/2019 02:24 PM. CLINICAL HISTORY: Fall with back pain/contusion, L side, head inj. COMPARISONS: CHEST ANGIO 08/11/2017 4:44 AM . TECHNIQUE: Routine helical CT imaging was performed through the chest, abdomen, and pelvis. IV contrast: OPTI 320 100mL. Enteric contrast: No. Reconstructions: Coronal and sagittal. Dedicated small field of view imaging and reformatted lumbar spine and thoracic spine were also obtained and interpreted. In accordance with CT protocol optimization, one or more of the following dose reduction techniques were utilized for this exam: automated exposure control, adjustment of mA and/or KV based on patient size, or use of iterative reconstructive technique. FINDINGS: Lungs/Pleura: Scant consolidation and groundglass is seen in the left perihilar region and lingula distribution as well as posterolaterally on the right. There are a few scattered pulmonary nodules measuring 3 mm or less without suspicious features. There is no pleural effusion or pneumothorax. Mediastinum: The patient is status post median sternotomy with CABG, severe coronary atherosclerosis. There is no evidence of mediastinal hematoma, gross injury to the great vessels or pericardial effusion. Thoracic spine: No osseous trauma to the thoracic spine is seen. Liver: Atraumatic. Gallbladder/Bile Ducts: Cholelithiasis. Spleen: Atraumatic. Pancreas: Normal. Adrenal Glands: Normal. Kidneys: Right renal simple cyst, no evidence of trauma or hydronephrosis on either side. Peritoneal Cavity/Bowel: Sigmoid predominant colonic diverticulosis without diverticulitis. No overt bowel hematoma and no bowel obstruction. No free fluid, free air or adenopathy. No masses or acute inflammatory process. Pelvic Organs: Normal. The bladder and visualized pelvic organs are within normal limits. Vasculature: No aneurysms or other significant abnormality. Lumbar Spine: Possible minimally displaced fracture of the transverse process of the left L2 vertebral body. Thoracolumbar S-shaped scoliosis in the form of a mild dextroconvex scoliosis centered about L1 followed by a mild levoconvex scoliosis centered about L4, appearance is degenerative in nature. Bones: There is a mildly displaced fracture of the posterior left 11th and 12th ribs with additional buckling of the posterior left 10th and ninth ribs detected. Other: None. IMPRESSION: Posterior left-sided rib fractures, 9 through 12. Question transverse process fracture of the left L2 vertebral body No evidence of traumatic injury to the visceral abdomen and pelvis or thoracic spine. CRITICAL RESULT: The findings were discussed with Dr. Mello on 03/22/2019 at 3:52 PM. RADIA
[2019-03-22 16:01] LABS: BILIRUBIN,URINE NEGATIVE (NEGATIVE); GLUCOSE, URINE (UA) NEGATIVE (NEGATIVE); KETONES,URINE (UA) NEGATIVE (NEGATIVE); LEUKOCYTE ESTERASE, URINE NEGATIVE (NEGATIVE); NITRITE,URINE NEGATIVE (NEGATIVE); OCCULT BLOOD,URINE NEGATIVE (NEGATIVE); PROTEIN,URINE NEGATIVE (NEGATIVE); UROBILINOGEN,URINE 0.2 (NORMAL) E.U./dL (NORMAL)
[2019-03-22 16:02] LABS: CLARITY,URINE CLEAR (CLEAR)
[2019-03-22] MEDS ORDERED: HYDROmorphone 1 MG/ML CARPUJECT IVP PRN (16:48)
[2019-03-22] MEDS ORDERED: ACETAMINOPHEN 325 MG TABLET PO PRN (16:48)
[2019-03-22] MEDS ORDERED: SODIUM CHLORIDE FLUSH 0.9% 10 ML SYRINGE IVP PRN (16:48)
[2019-03-22] MEDS ORDERED: PROCHLORPERAZINE 10 MG/2 ML VIAL IVP PRN (16:48)
[2019-03-22 17:47] LABS: HB2 TOTAL 14.8 g/dL; HEMOGLOBIN A1C 0.71 g/dL; HEMOGLOBIN A1C % 6.5 % (4.6-6.2)
[2019-03-22] MEDS: INSULIN ASPART 300 UNIT/3 ML PEN SUBQ SCH ×2 (18:46→22:03)
[2019-03-22] MEDS ORDERED: oxyCODONE 5 MG TABLET PO PRN (19:19)
[2019-03-22] MEDS: IBUPROFEN 600 MG TABLET PO SCH (19:33)
[2019-03-22] MEDS: SODIUM CHLORIDE FLUSH 0.9% 10 ML SYRINGE IVP SCH (19:34)
--- NOTE | 2019-03-22 20:24 | HISTORY & PHYSICAL EXAMINATION ---
Chief Complaint - Chief Complaint Chief Complaint: mechanical fall History of Present Illness - Admitted From Admitted From:: [facility] - History Obtained From Records Reviewed: yes History obtained from: patient - History of Present Illness HPI Comment/Other: Patient seen on 03/22/19 at 1945 pm Patient is an 88 y/o male who presented to the ED around noon with severe back pain. He sustained a mechanical fall last night His shoe got caught on his linileum floor in the bathroom as he was trying to reach for the door handle. He went down against the wall, counter, unto the floor and couldn't get up. He hit the left side of his head but did not black out.He declined going to the ED at the time of occurrence but when he woke up this morning in excruciating pain, his daughter called EMS who brought him to the ED. Currently he is resting comfortably in bed and on room air. He denies chest pain, HIRA, abd pain. He was nauseous but no vomiting. He denied fever or chills. He has a mild wheeze and left lower extremity edema which is chronic. Work up in the ED included extensive images which showed fractures of left posterior ribs 9-12 He is being admitted for observation and pain control. History - Past Medical History Cardiovascular: reports: Hypertension, Coronary artery disease Respiratory: reports: COPD, Emphysema Neuro: reports: Peripheral neuropathy Endocrine/Autoimmune: reports: Type 2 diabetes GI: reports: GERD : reports: None HEENT: reports: None Psych: reports: None Musculoskeletal: reports: Osteoarthritis, Other Derm: reports: None MRSA Hx?: No - Past Surgical History Ortho: reports: Knee replacement Cardiovascular: reports: CABG, Coronary stent - Family & Social History Family History: Brother: CAD, Diabetes, Type 2 Living arrangement: At home Living Situation: Alone Social History Notes: Patient lives alone at home. He is a . His last year. He denies tobacco use. He drinks alcohol occasionally. Denies any illicit drug use. - POLST Patient has POLST: No POLST Status: Full Code Meds/Allgy - Home Medications Home Medications: Ambulatory Orders Medication Instructions Recorded Confirmed Aspirin [Adult Low Dose Aspirin EC] 81 mg PO DAILY 08/10/17 03/22/19 Losartan Potassium 50 mg DAILY 08/10/17 03/22/19 Metformin HCl 500 mg PO BID 08/10/17 03/22/19 Nitroglycerin 0.4 mg/Hr Patch 1 patch DAILY 08/10/17 03/22/19 [Nitro-Dur] Atorvastatin Calcium [Lipitor] 40 mg PO QPM 03/22/19 03/22/19 Clopidogrel [Plavix] 75 mg PO DAILY 03/22/19 03/22/19 Pantoprazole [Protonix] 40 mg PO DAILY 03/22/19 03/22/19 diltiaZEM [Cardizem] 60 mg PO ONCE 03/22/19 03/22/19 - Allergies Allergies/Adverse Reactions: Allergies Allergy/AdvReac Type Severity Reaction Status Date / Time eggs Allergy Unknown Uncoded 03/22/19 12:41 Review of Systems - Constitutional Constitutional: denies: Fatigue, Fever, Chills, Malaise - Eyes Eyes: denies: Pain, Amaurosis, Blurred vision, Vision loss, Dipolpia - Ears, Nose & Throat Ears, Nose & Throat: denies: Ear pain, Tinnitus, Vertigo, Nasal pain, Nasal discharge - Cardiovascular Cariovascular: reports: Edema (left lower ext). denies: Chest pain, Lightheadedness, Syncope - Respiratory Respiratory: reports: Wheezing, Pleuritic pain. denies: Cough, Sputum production, Snoring, Hemoptysis, Orthopnea, SOB at rest, SOB with exertion - Gastrointestinal Gastrointestinal: reports: Abdominal distention (obese abdomen), Nausea. denies: Abdominal pain, Constipation, Diarrhea, Change in bowel habits, Rectal bleeding, Vomiting - Genitourinary Genitourinary: denies: Dysuria, Frequency, Urgency, Hematuria - Musculoskeletal Musculoskeletal: reports: Back pain - Integumentary Integumentary: denies: Rash, Pruritis - Neurological Neurological: denies: General weakness, Focal weakness, Headache, Dizziness, Numbness - Psychiatric Psychiatric: denies: Depression, Anxiety - Endocrine Endocrine: denies: Polyuria, Polydypsia - Hematologic/Lymphatic Hematologic/Lymphatic: denies: Anemia, Bruising, Petechiae Prior Level of Functionality: Patient is independent of activities of daily living He lives alone. He is a . His last year. He used to tow cars for a living Exam - Vital Signs Vital Signs: Vital Signs x48h Temp Pulse Pulse Resp BP BP Pulse Ox 03/22/19 18:25 36.6 C 88 20 151/70 H 94 03/22/19 16:48 81 19 152/93 H 93 03/22/19 15:02 85 20 123/73 92 03/22/19 14:00 81 20 122/85 H 93 03/22/19 13:30 83 137/79 H 93 03/22/19 13:00 83 20 143/77 H 93 03/22/19 12:35 36.3 C L 90 14 163/105 H 95 - Physical Exam General Appearance: positive: Alert, Moderate distress. negative: Anxious, Lethargic Eyes Bilateral: positive: Normal inspection, PERRL, EOMI, No lid inflammation, No scleral icterus ENT: positive: ENT inspection nml, No signs of dehydration Neck: positive: Nml inspection, No JVD, Trachea midline Respiratory: positive: No respiratory distress, Wheezes Cardiovascular: positive: Regular rate & rhythm, No murmur Abdomen: positive: Non-tender, No organomegaly. negative: Tenderness, Guarding, Rebound Back: positive: Other (left posterior side tenderness) Skin: positive: Color nml, No rash, Warm, Dry Extremities: positive: Non-tender, Nml appearance, Pedal edema (left leg) Neurologic/Psychiatric: positive: Oriented x3, CN's nml (2-12) Conclusion/Plan - Problem List (1) Multiple rib fractures involving four or more ribs Conclusion/Plan: left posterior. s/p mechanical fall Will manage pain with tylenol, motrin and/or narcotics Incentive spirometry ordered (2) HTN (hypertension) Conclusion/Plan: Will resume home meds Diltiazem and losartan Qualifiers: Hypertension type: essential hypertension Qualified Code(s): I10 - E ssential (primary) hypertension (3) CAD (coronary artery disease) Conclusion/Plan: s/p CABG and PCI w/ stent On plavix and aspirin (4) Hyperlipidemia Conclusion/Plan: On atorvastatin (5) DM2 (diabetes mellitus, type 2) Conclusion/Plan: Metformin held. 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
[2019-03-22] MEDS ORDERED: ATORVASTATIN 40 MG TABLET PO SCH (21:00)
[2019-03-22] MEDS: FAMOTIDINE 20 MG TABLET PO SCH (22:03)
[2019-03-23] MEDS: IBUPROFEN 600 MG TABLET PO SCH ×2 (01:01→08:42)
[2019-03-23] MEDS: SODIUM CHLORIDE FLUSH 0.9% 10 ML SYRINGE IVP SCH ×3 (01:31→08:44)
[2019-03-23 05:20] LABS: BASOPHILS % (AUTO) 0.7 %; EOSINOPHILS # (AUTO) 0.4 10^3/uL (0.0-0.7); EOSINOPHILS % (AUTO) 6.9 %; HGB - HEMOGLOBIN 12.6 g/dL (14.0-18.0); LYMPHOCYTES % (AUTO) 15.7 %; MEAN CORPUSCULAR HEMOGLOBIN 29.7 pg (27.0-31.0); MEAN CORPUSCULAR HGB CONC 33.4 g/dL (32.0-36.0); MEAN CORPUSCULAR VOLUME 88.8 fL (80.0-94.0); MEAN PLATELET VOLUME 9.4 fL (7.4-11.4); MONOCYTES # (AUTO) 0.8 10^3/uL (0.0-1.0); MONOCYTES % (AUTO) 12.6 %; NEUTROPHILS # (AUTO) 4.1 10^3/uL (1.5-6.6); NEUTROPHILS % (AUTO) 64.1 %; PLT - PLATELET COUNT 119 10^3/uL (130-450); RED BLOOD COUNT 4.25 10^6/uL (4.70-6.10); RED CELL DISTRIBUTION WIDTH 14.5 % (12.0-15.0); WHITE BLOOD COUNT 6.4 x10^3/uL (4.8-10.8)
[2019-03-23 05:31] LABS: CALCIUM 8.6 mg/dL (8.5-10.3); CREATININE 0.9 mg/dL (0.6-1.2)
--- NOTE | 2019-03-23 06:21 | XRAY Report ---
Reason: F/U for infiltrate or atelectasis after rib fx Procedure Date: 03/23/2019 Accession Number: [id number] / [id number] Procedure: XR - Chest 1 View X-Ray CPT Code: 82159 FULL RESULT: EXAM: CHEST RADIOGRAPHY EXAM DATE: 03/23/2019 05:56 AM. CLINICAL HISTORY: F/U for infiltrate or atelectasis after rib fx. COMPARISON: CHEST 1 VIEW 03/01/2019 3:12 PM. TECHNIQUE: 1 view. FINDINGS: Lungs/Pleura: Bronchial wall thickening versus pulmonary vascular congestion. No alveolar consolidation seen. No definite pleural effusion. No pneumothorax. Mediastinum: Within exam limitations, heart is mildly enlarged. Other: Median sternotomy and CABG. Osteopenia. IMPRESSION: 1. Mild cardiomegaly and postoperative changes. 2. Bronchial wall thickening versus pulmonary vascular congestion. RADIA
[2019-03-23] MEDS: INSULIN ASPART 300 UNIT/3 ML PEN SUBQ SCH ×2 (07:58→11:48)
[2019-03-23] MEDS: FAMOTIDINE 20 MG TABLET PO SCH (08:43)
[2019-03-23] MEDS ORDERED: POLYETHYLENE GLYCOL 3350 17 GM PACKET PO SCH (09:00)
[2019-03-23] MEDS ORDERED: NITROGLYCERIN 0.4 MG/HR PATCH TOP SCH (09:00)
[2019-03-23] MEDS ORDERED: ASPIRIN EC 81 MG TABLET PO SCH (09:00)
[2019-03-23] MEDS ORDERED: LOSARTAN 50 MG TABLET PO SCH (09:00)
[2019-03-23] MEDS ORDERED: CLOPIDOGREL 75 MG TABLET PO SCH (09:00)
--- NOTE | 2019-03-23 10:35 | Discharge Plan ---
Discharge Plan Disposition: Home, Self Care Condition: Stable Prescriptions: Acetaminophen/Cod 300/30 [Tylenol #3] 1 tab PO Q6HR #28 tablet Ibuprofen [Motrin] 600 mg PO Q8H #45 tablet Diet: Cardiac Activity Restrictions: Activity as Tolerated Shower Restrictions: No Driving Restrictions: No Instruction Topics: Fx Rib Additional Instructions or Follow Up instructions: You were here for management of pain from broken ribs and to start Incentive Spirometry to prevent a pneumonia from splinting causing lung collapse. You should take the pain medications (Motrin and Tylenol with Codeine) on a scheduled basis, for several days to a week, in order to prevent pain and to be able to inhale deeply, and use the Incentive Spirometer. Resume all your other pre-hospital medications. See your PCP for any further questions, medication refills and for a thorough hospital follow-up visit in 5-10 days. No Smoking: If you smoke, Please STOP! Call for help. Follow-up with: Shorty Huitron MD [Primary Care Provider] -
[2019-03-23] MEDS ORDERED: diltiaZEM CD 120 MG CAPSULE PO SCH (11:00)
[2019-03-23] MEDS ORDERED: ACETAMINOPHEN/CODEINE 300 MG/30 MG TABLET PO SCH (12:00)
[2019-03-23 12:36] VITALS: BP 134/74
--- NOTE | 2019-03-23 18:23 | DISCHARGE SUMMARY ---
Physician: Gretta Zapien MD DATE OF ADMISSION: 03/22/2019 DATE OF DISCHARGE: 03/23/2019 HISTORY OF PRESENT ILLNESS: This is an 80-year-old white male who has a history of coronary artery disease with remote bypass surgery and more recent coroonary stenting. He is on daily aspirin and Plavix. He has a history of COPD, hypertension, type 2 diabetes, peripheral neuropathy. The patient suffered a mechanical fall in his house, tripping over linoleum in the bathroom and fell against the wall and counter and hit the left side of his head, as well as left side of his body. He did not have syncope. He did not want to go to the emergency room at the time of the event. He woke up in the morning with excruciating pain and his daughter called EMS who brought him to the emergency room. In the ER, he had extensive x-rays and found to have left posterior ribs 9 through 12 with fractures . He was placed in Observation for pain management and incentive spirometry initiation. HOSPITAL COURSE AND DISCHARGE DIAGNOSES 1. Rib fractures. The patient was able to have adequate inspiratory volume of 1000 mL using incentive spirometry, which was ordered every 1 hour while awake. He also had adequate pain control using IV Dilaudid, given x1, scheduled Motrin t.i.d. and oral codeine qid. He was not overly sedated with this combination and was able to be discharged the following day with prescriptions for scheduled Motrin for 2 weeks and scheduled Tylenol with codeine for 1 week and to use the incentive spirometer. He was told to have followup with his PCP in 5-10 days for further management. 2. Hypertension. The patient was on diltiazem and losartan with fairly good blood pressure control, except when he was in pain. 3. Coronary artery disease. The patient's Plavix and aspirin were continued. 4. Hyperlipidemia. The patient's Atorvastatin was discontinued. 5. Diabetes mellitus, type 2. His metformin was on hold while here. He was placed on a carb-controlled diet, sliding scale insulin was used for coverage. 6. Gastroesophageal reflux disease. The patient was kept on his Protonix. LABORATORY AND IMAGING: Reviewed and summarized above. ALLERGIES: EGGS. MEDICATIONS AT DISCHARGE 1. Sublingual nitroglycerin p.r.n. 2. Nitro patch topically 0.4 mg daily. 3. Protonix 40 mg daily. 4. Baby aspirin daily. 5. Plavix 75 mg daily. 6. Lipitor 40 mg every night. 7. Diltiazem CD 120 mg daily. 8. Losartan 50 mg daily. 9. Metformin 500 mg b.i.d. 10. Tylenol with codeine 300/30 mg q. 6 hours scheduled or p.r.n. pain. 11. Ibuprofen 600 mg every 8 hours scheduled for a limited period of time. CONDITION OF PATIENT UPON DISCHARGE: Stable. PHYSICAL EXAMINATION VITAL SIGNS: Blood pressure 130/74, pulse 70, afebrile, room air saturation 94%. HEENT: Unremarkable. NECK: Without JVD. No carotid bruits. CHEST: Clear. Good air entry on the left side and no wheezing audible. HEART: Heart sounds normal. No murmur. ABDOMEN: Soft, obese, nontender. EXTREMITIES: No edema. NEUROLOGIC: Grossly intact. CODE STATUS: FULL CODE. FOLLOWUP: The patient was advised to see his PCP in 5-10 days as described above and keep his routine appointment to Cardiology this week. Time required to complete the entire discharge, chart review, patient education, prescription orders, dictation: 30 minutes. TD: 03/23/2019 18:09 VIPIN
== END 2019-03-23 14:53 | disposition home or self-care (01) ==
LOC: EDUNIT# → ED 12:32 → MS2 16:47
PROVIDERS: ADMIT Internal Medicine; ATTEND Internal Medicine
DX: S22.42XA Multiple fractures of ribs, left side, initial encounter for closed fracture (principal); S09.90XA Unspecified injury of head, initial encounter; S39.92XA Unspecified injury of lower back, initial encounter; S90.31XA Contusion of right foot, initial encounter; J43.9 Emphysema, unspecified; I10 Essential (primary) hypertension; E11.42 Type 2 diabetes mellitus with diabetic polyneuropathy; I25.10 Atherosclerotic heart disease of native coronary artery without angina pectoris; E78.5 Hyperlipidemia, unspecified; K21.9 Gastro-esophageal reflux disease without esophagitis; R06.2 Wheezing; R60.0 Localized edema; W01.198A Fall on same level from slipping, tripping and stumbling with subsequent striking against other object, initial encounter; Y92.002 Bathroom of unspecified non-institutional (private) residence as the place of occurrence of the external cause; Z79.02 Long term (current) use of antithrombotics/antiplatelets; Z79.82 Long term (current) use of aspirin; Z79.84 Long term (current) use of oral hypoglycemic drugs; Z95.1 Presence of aortocoronary bypass graft; Z95.5 Presence of coronary angioplasty implant and graft; Z96.659 Presence of unspecified artificial knee joint; M19.90 Unspecified osteoarthritis, unspecified site
CPT/HCPCS: 36415; 70450; 71045; 71260; 72125; 72128; 72131; 73630; 74177; 80048; 80053; 81003; 83036; 83690; 83880; 84443; 85025; 85610; 96374; 96375; 96376; 99284; 99285; A9270; G0378; J1170; Q9967; 81001; 87086

== ENCOUNTER 2019-03-26 00:12 | Outpatient (CLI) | payer MEDICARE, OTHER | END 2019-03-26 00:13 | disposition critical access hospital (66) | LOC: EMS 00:12 | PROVIDERS: ATTEND Surgery | DX: R14.0 Abdominal distension (gaseous) (principal); R19.8 Other specified symptoms and signs involving the digestive system and abdomen; R07.81 Pleurodynia; R20.2 Paresthesia of skin | CPT/HCPCS: A0425; A0429 ==

== ENCOUNTER 2019-03-26 00:45 | Emergency (ER) | payer MEDICARE ==
--- NOTE | 2019-03-26 02:53 | ED Physician Documentation ---
PD HPI ABD PAIN - Stated complaint Stated Complaint: CONSTIPATION - Chief complaint Chief Complaint: Abd Pain - History obtained from History obtained from: Patient - History of Present Illness Timing - onset: How many days ago (5) Timing - duration: Days Timing - details: Gradual onset, Still present Pain level now: 6 Quality: Pain Location: All over / everywhere Radiation: No: Chest, , Lower back, Left flank, Left shoulder, Right flank, Right shoulder, Upper back Improved by: Other (nothing) Worsened by: Other (no exacerbating factors) Associated symptoms: Constipation. No: Fever, Nausea, Vomiting Similar symptoms before: Has not had sx before Recently seen: Admitted - Additional information Additional information: recently admitted for rib fractures sustained when he fell, returns to ED due to constipation x 5 days and abdominal distention Review of Systems Constitutional: reports: Reviewed and negative Cardiac: reports: Reviewed and negative Respiratory: reports: Reviewed and negative GI: reports: Abdominal Pain, Abdominal Swelling, Constipation. denies: Nausea, Vomiting : denies: Dysuria, Frequency PD PAST MEDICAL HISTORY - Past Medical History Cardiovascular: Hypertension, Coronary artery disease Respiratory: COPD, Emphysema Neuro: Peripheral neuropathy Endocrine/Autoimmune: Type 2 diabetes GI: GERD : None HEENT: None Psych: None Musculoskeletal: Osteoarthritis, Other Derm: None - Past Surgical History Past Surgical History: Yes Ortho: Knee replacement Cardiovascular: CABG, Coronary stent - Present Medications Home Medications: Ambulatory Orders Medication Instructions Recorded Confirmed Aspirin [Adult Low Dose Aspirin EC] 81 mg PO DAILY 08/10/17 03/26/19 Losartan Potassium 50 mg PO DAILY 08/10/17 03/26/19 Metformin HCl 500 mg PO BID 08/10/17 03/26/19 Nitroglycerin 0.4 mg/Hr Patch 1 patch DAILY 08/10/17 03/26/19 [Nitro-Dur] Atorvastatin Calcium [Lipitor] 40 mg PO QPM 03/22/19 03/26/19 Clopidogrel [Plavix] 75 mg PO DAILY 03/22/19 03/26/19 Pantoprazole [Protonix] 40 mg PO QDAC 03/22/19 03/26/19 Acetaminophen/Cod 300/30 [Tylenol 1 tab PO Q6HR #28 tablet 03/23/19 03/26/19 #3] Ibuprofen [Motrin] 600 mg PO Q8H #45 tablet 03/23/19 03/26/19 Nitroglycerin [Nitrostat] 0.4 mg SL Q5MIN PRN 03/23/19 03/26/19 dilTIAZem HCl [Diltiazem 24Hr ER 120 mg PO DAILY 03/23/19 03/26/19 (Xr)] Furosemide 20 mg PO PRN 03/26/19 03/26/19 Polyethylene Glycol 3350 [Miralax] 17 gm PO DAILY PRN #1 bottle 03/26/19 - Allergies Allergies/Adverse Reactions: Allergies Allergy/AdvReac Type Severity Reaction Status Date / Time egg Allergy Unknown Unknown Verified 03/23/19 11:29 - Social History Does the pt smoke?: No Smoking Status: Never smoker Does the pt drink ETOH?: Yes Does the pt have substance abuse?: No - Immunizations Immunizations are current?: Yes - POLST Patient has POLST: No POLST Status: Full Code PD ED PE NORMAL - Vitals Vital signs reviewed: Yes - General General: Alert and oriented X 3, No acute distress, Well developed/nourished - Cardiac Cardiac: RRR, No murmur - Respiratory Respiratory: No respiratory distress, Clear bilaterally - Abdomen Abdomen: Soft PD ED PE EXPANDED - Abdomen Abdomen: Decreased BS, Distended. No: Tender to palpation Results - Vitals Vitals: Oxygen O2 Source Room air - Labs Labs: Laboratory Tests 03/26/19 03/26/19 03/26/19 03:30 03:30 05:15 WBC 6.7 RBC 4.25 L Hgb 12.5 L Hct 37.7 L MCV 88.6 MCH 29.3 MCHC 33.1 RDW 14.7 Plt Count 131 MPV 9.9 Neut # (Auto) 4.4 Lymph # (Auto) 1.2 L [place] # (Auto) 0.8 Eos # (Auto) 0.3 Baso # (Auto) 0.1 Absolute Nucleated RBC 0.00 Nucleated RBC % 0.0 Sodium 139 Potassium 4.1 Chloride 105 Carbon Dioxide 27 Anion Gap 7.0 BUN 25 H Creatinine 1.0 Estimated GFR (MDRD) 70 L Glucose 136 H Calcium 8.8 Total Bilirubin 0.9 AST 17 ALT 15 Alkaline Phosphatase 84 Total Protein 6.2 L Albumin 3.5 Globulin 2.7 Albumin/Globulin Ratio 1.3 Lipase 29 Urine Color YELLOW Urine Clarity CLEAR Urine pH 5.5 Ur Specific [place] 1.020 Urine Protein NEGATIVE Urine Glucose (UA) NEGATIVE Urine Ketones NEGATIVE Urine Occult Blood NEGATIVE Urine Nitrite NEGATIVE Urine Bilirubin NEGATIVE Urine Urobilinogen 0.2 (NORMAL) Ur Leukocyte Esterase NEGATIVE Ur Microscopic Review NOT INDICATED Urine Culture Comments NOT INDICATED - Rads (name of study) acute abd. xrays Radiology: Prelim report reviewed, See rad report CT A/P Radiology: Prelim report reviewed, See rad report PD MEDICAL DECISION MAKING - ED course Complexity details: reviewed old records, reviewed results, re-evaluated patient, considered differential, d/w patient, d/w family ED course: after fleets enema, po magnesium citrate, and soap suds enema, patient had large BM with relief of distention and discomfort Departure - Departure Disposition: 01 Home, Self Care Clinical Impression: Constipation Condition: Good Instructions: ED Constipation Prescriptions: Polyethylene Glycol 3350 [Miralax] 17 gm PO DAILY PRN #1 bottle PRN Reason: Constipation Discharge Date/Time: 03/26/19 08:05
--- NOTE | 2019-03-26 02:54 | XRAY Report ---
Reason: pain/constipation Procedure Date: 03/26/2019 Accession Number: [id number] / [id number] Procedure: XR - Abdomen Acute CPT Code: FULL RESULT: EXAM: ABDOMINAL SERIES AND PA CHEST EXAM DATE: 03/26/2019 02:21 AM. CLINICAL HISTORY: Pain/constipation. COMPARISON: CHEST 1 VIEW 03/23/2019 5:41 AM ABDOMEN/PELVIS W/ 03/22/2019 2:24 PM. TECHNIQUE: 2 views abdomen and 1 view chest. FINDINGS: CHEST: Lungs/Pleura: Bilateral atelectasis. No pleural effusion. No pneumothorax. Mediastinum: Heart size upper normal. ABDOMEN: Bowel Gas Pattern: Gas-filled large and small bowel loops with multiple air-fluid levels. Free Air: None. Other: Possible calcified gallstone. Osteopenia. Median sternotomy. IMPRESSION: 1. Nonspecific gas pattern with gas filled large and small bowel loops and multiple air-fluid levels. There could be ileus. Obstruction less likely. 2. Possible calcified gallstone. 3. Bilateral atelectasis with postoperative changes in the chest. RADIA
[2019-03-26] MEDS ORDERED: IOVERSOL 320 100 ML VIAL IVP ONE ×2 (03:31→05:11)
[2019-03-26] MEDS ORDERED: IOVERSOL 320 50 ML VIAL ONE (03:31)
[2019-03-26] MEDS ORDERED: KETOROLAC 30 MG/ML VIAL IVP STA (03:32)
[2019-03-26 03:48] LABS: BASOPHILS # (AUTO) 0.1 10^3/uL (0.0-0.1); BASOPHILS % (AUTO) 0.8 %; EOSINOPHILS # (AUTO) 0.3 10^3/uL (0.0-0.7); EOSINOPHILS % (AUTO) 4.5 %; HGB - HEMOGLOBIN 12.5 g/dL (14.0-18.0); LYMPHOCYTES # (AUTO) 1.2 10^3/uL (1.5-3.5); LYMPHOCYTES % (AUTO) 17.5 %; MEAN CORPUSCULAR HEMOGLOBIN 29.3 pg (27.0-31.0); MEAN CORPUSCULAR HGB CONC 33.1 g/dL (32.0-36.0); MEAN CORPUSCULAR VOLUME 88.6 fL (80.0-94.0); MEAN PLATELET VOLUME 9.9 fL (7.4-11.4); MONOCYTES # (AUTO) 0.8 10^3/uL (0.0-1.0); MONOCYTES % (AUTO) 11.4 %; NEUTROPHILS # (AUTO) 4.4 10^3/uL (1.5-6.6); NEUTROPHILS % (AUTO) 65.8 %; PLT - PLATELET COUNT 131 10^3/uL (130-450); RED BLOOD COUNT 4.25 10^6/uL (4.70-6.10); RED CELL DISTRIBUTION WIDTH 14.7 % (12.0-15.0); WHITE BLOOD COUNT 6.7 x10^3/uL (4.8-10.8)
[2019-03-26 03:58] LABS: ALBUMIN 3.5 g/dL (3.2-5.5); ALBUMIN/GLOBULIN RATIO 1.3 (1.0-2.2); BILIRUBIN,TOTAL 0.9 mg/dL (0.2-1.0); CALCIUM 8.8 mg/dL (8.5-10.3); TOTAL PROTEIN 6.2 g/dL (6.7-8.2)
[2019-03-26] MEDS ORDERED: IOVERSOL 320 50 ML VIAL PO ONE (05:12)
[2019-03-26 05:16] LABS: BILIRUBIN,URINE NEGATIVE (NEGATIVE); GLUCOSE, URINE (UA) NEGATIVE (NEGATIVE); KETONES,URINE (UA) NEGATIVE (NEGATIVE); LEUKOCYTE ESTERASE, URINE NEGATIVE (NEGATIVE); NITRITE,URINE NEGATIVE (NEGATIVE); OCCULT BLOOD,URINE NEGATIVE (NEGATIVE); PH,URINE 5.5 PH (5.0-7.5); PROTEIN,URINE NEGATIVE (NEGATIVE); UROBILINOGEN,URINE 0.2 (NORMAL) E.U./dL (NORMAL)
[2019-03-26 05:24] LABS: CLARITY,URINE CLEAR (CLEAR)
--- NOTE | 2019-03-26 05:33 | CT Report ---
Reason: abd. pain Procedure Date: 03/26/2019 Accession Number: [id number] / [id number] Procedure: CT - Abdomen/Pelvis W CPT Code: FULL RESULT: EXAM: CT ABDOMEN AND PELVIS EXAM DATE: 03/26/2019 04:49 AM. CLINICAL HISTORY: Abdominal pain. Constipation. Recent rib fractures. COMPARISONS: ABDOMEN/PELVIS W/ 03/22/2019 2:24 PM. TECHNIQUE: Routine helical CT imaging was performed through the abdomen and pelvis. IV contrast: OPTIRAY 320 100mL. Enteric contrast: Yes. Reconstructions: Coronal and sagittal. In accordance with CT protocol optimization, one or more of the following dose reduction techniques were utilized for this exam: automated exposure control, adjustment of mA and/or KV based on patient size, or use of iterative reconstructive technique. FINDINGS: Lung Bases: Mild bibasilar atelectasis. Coronary artery calcifications with prior CABG. Heart size upper normal. Trace left pleural effusion. Liver: Possible fatty infiltration. Gallbladder/Bile Ducts: Calcified stones in the gallbladder without obvious cholecystitis. Spleen: Normal. Pancreas: Normal. Adrenal Glands: Normal. Kidneys: Bilateral cysts. No masses or hydronephrosis. Peritoneal Cavity/Bowel: Moderate to large amount of stool in the colon. Nondilated fluid-filled small bowel loops. No evidence of bowel obstruction. Colonic diverticula without evidence of diverticulitis. No free air or free fluid. No lymphadenopathy. Appendix is not well seen. No evidence of appendicitis. Pelvic Organs: Enlarged prostate measuring 5.7 x 5.4 cm. Intravesicular protrusion measuring 1.2 cm. Vasculature: Moderate atherosclerosis. No aortic aneurysm. Bones: Osteopenia. Left rib fractures. Left L2 transverse process fracture, possibly old. Old pelvic fractures. Degenerative changes and scoliosis in the spine. Spinal stenosis. Degenerative joint disease in the hips. Other: None. IMPRESSION: 1. Left rib fractures with bibasilar atelectasis and trace left pleural effusion. 2. Moderate to large amount of stool in the colon. 3. Fluid-filled small bowel loops without evidence of obstruction. This could be normal. Mild enteritis could also have this appearance. 4. Calcified stones in the gallbladder with no obvious cholecystitis. 5. Colonic diverticulosis. No diverticulitis identified. RADIA
[2019-03-26] MEDS ORDERED: MINERAL OIL ENEMA 133 ML BOTTLE RC STA (05:48)
[2019-03-26] MEDS ORDERED: MAGNESIUM CITRATE 296 ML BOTTLE PO STA (05:48)
[2019-03-26] MEDS ORDERED: SOAP SUDS ENEMA 1 EACH RC STA (06:35)
[2019-03-26 08:04] VITALS: BP 154/94
== END 2019-03-26 08:05 | disposition home or self-care (01) ==
LOC: EDUNIT# → ED 00:45
DX: K59.00 Constipation, unspecified (principal); I10 Essential (primary) hypertension; E11.9 Type 2 diabetes mellitus without complications; Z79.84 Long term (current) use of oral hypoglycemic drugs; Z79.02 Long term (current) use of antithrombotics/antiplatelets; Z79.82 Long term (current) use of aspirin
CPT/HCPCS: 36415; 74022; 74177; 80053; 81003; 83690; 85025; 96374; 99283; A9270; Q9967; 81001; 87086

== ENCOUNTER 2019-04-23 15:20 | Emergency (ER) | payer MEDICARE, OTHER ==
[2019-04-23 15:32] VITALS: BP 138/78
--- NOTE | 2019-04-23 15:42 | ED Physician Documentation ---
History of Present Illness - Stated complaint Stated Complaint: RIB/ABD PX - Chief complaint Chief Complaint: General - History obtained from History obtained from: Patient, Family - History of Present Illness Timing: Other (89-year-old gentleman who fell last month with several left-sided rib fractures. About 10 days ago he fell again. He says he was bending over to unplug something and then got back up and lost his balance and fell backwards against the coffee table and has moderate posterior right-sided rib pain. Is not improving. No other injuries. He does have constipation with abdominal fullness despite taking prune juice and MiraLAX. Last good BM was 3 days ago.) Review of Systems Constitutional: denies: Fever, Chills Respiratory: denies: Dyspnea, Cough GI: denies: Abdominal Pain, Nausea, Vomiting PD PAST MEDICAL HISTORY - Past Medical History Cardiovascular: Hypertension, Coronary artery disease Respiratory: COPD, Emphysema Neuro: Peripheral neuropathy Endocrine/Autoimmune: Type 2 diabetes GI: GERD : None HEENT: None Psych: None Musculoskeletal: Osteoarthritis, Other Derm: None - Past Surgical History Past Surgical History: Yes Ortho: Knee replacement Cardiovascular: CABG, Coronary stent - Present Medications Home Medications: Ambulatory Orders Medication Instructions Recorded Confirmed Aspirin [Adult Low Dose Aspirin EC] 81 mg PO DAILY 08/10/17 03/26/19 Losartan Potassium 50 mg PO DAILY 08/10/17 04/23/19 Metformin HCl 500 mg PO BID 08/10/17 04/23/19 Nitroglycerin 0.4 mg/Hr Patch 1 patch DAILY 08/10/17 04/23/19 [Nitro-Dur] Atorvastatin Calcium [Lipitor] 40 mg PO QPM 03/22/19 03/26/19 Clopidogrel [Plavix] 75 mg PO DAILY 03/22/19 04/23/19 Pantoprazole [Protonix] 40 mg PO QDAC 03/22/19 04/23/19 Acetaminophen/Cod 300/30 [Tylenol 1 tab PO Q6HR #28 tablet 03/23/19 03/26/19 #3] Ibuprofen [Motrin] 600 mg PO Q8H #45 tablet 03/23/19 04/23/19 Nitroglycerin [Nitrostat] 0.4 mg SL Q5MIN PRN 03/23/19 04/23/19 dilTIAZem HCl [Diltiazem 24Hr ER 120 mg PO DAILY 03/23/19 04/23/19 (Xr)] Furosemide 20 mg PO PRN 03/26/19 03/26/19 Polyethylene Glycol 3350 [Miralax] 17 gm PO DAILY PRN #1 bottle 03/26/19 04/23/19 Hydrocodone/Acetaminophen 1 - 2 each PO Q6H PRN #20 tablet 04/23/19 [Hydrocodon-Acetaminophen 5-325] - Allergies Allergies/Adverse Reactions: Allergies Allergy/AdvReac Type Severity Reaction Status Date / Time egg Allergy Unknown Unknown Verified 03/23/19 11:29 - Social History Does the pt smoke?: No Smoking Status: Never smoker Does the pt drink ETOH?: Yes Does the pt have substance abuse?: No - Immunizations Immunizations are current?: Yes - POLST Patient has POLST: No POLST Status: Full Code PD ED PE NORMAL - Vitals Vital signs reviewed: Yes - General General: Alert and oriented X 3, No acute distress - HEENT HEENT: PERRL, EOMI - Neck Neck: Supple, no meningeal sign, No bony TTP - Cardiac Cardiac: RRR, No murmur - Respiratory Respiratory: No respiratory distress, Clear bilaterally - Abdomen Abdomen: Non tender - Back Back: Other (He has an ecchymosis that is a little smaller than a palm, posterior axillary line about rib 10 with about rib 8 corresponding tenderness. There is no corresponding abdominal/right upper quadrant/flank tenderness.) - Neuro Neuro: Alert and oriented X 3, Normal speech Results - Vitals Vitals: Vital Signs - 24 hr 04/23/19 15:28 Temperature 36.2 C L Heart Rate 81 Respiratory 18 Rate Blood Pressure 138/78 H O2 Saturation 95 Oxygen O2 Source Room air - Rads (name of study) R ribs and chest Radiology: EMP read contemporaneously (Acute right seventh through ninth rib fractures with a small pleural effusion.) PD MEDICAL DECISION MAKING - ED course ED course: This is an 89-year falls in 2 months suffering rib fractures each time. Given the time course of this episode he is proven his stability as an outpatient. Departure - Departure Disposition: 01 Home, Self Care Clinical Impression: Fracture of rib Qualifiers: Encounter type: initial encounter Rib fracture type: multiple ribs Fracture type: closed Laterality: right Qualified Code(s): S22.41XA - Multiple fractures of ribs, right side, initial encounter for closed fracture Condition: Good Record reviewed to determine appropriate education?: Yes Health Concerns: 3 right-sided rib fractures from fall 10 days ago Plan of Treatment: Pain control Care Goals: pain control Instructions: ED Fx Rib Prescriptions: Hydrocodone/Acetaminophen [Hydrocodon-Acetaminophen 5-325] 1 - 2 each PO Q6H PRN #20 tablet PRN Reason: pain Comments: Call your doctor to arrange a follow-up appointment, make the next available appointment. In the interim, return anytime if worse or if new symptoms develop.
--- NOTE | 2019-04-23 16:36 | XRAY Report ---
Reason: R rib inj Procedure Date: 04/23/2019 Accession Number: [id number] / [id number] Procedure: XR - Ribs w/PA Chest RT CPT Code: FULL RESULT: EXAM: RIGHT RIB RADIOGRAPHY EXAM DATE: 04/23/2019 04:01 PM. CLINICAL HISTORY: R rib inj. COMPARISON: ABDOMEN ACUTE 03/26/2019 1:55 AM. TECHNIQUE: 1 view of the chest and 2 views of the ribs. FINDINGS: Bones: There are fractures of the right anterolateral seventh, eighth, and ninth ribs with negligible displacement. Lungs: There is blunting of the right costophrenic angle which is new. There is no pneumothorax. Mediastinum: Previous sternotomy noted. Heart size is normal. There is mild tortuosity and atherosclerosis of the aorta. Other: None. IMPRESSION: 1. Acute fractures of right seventh through ninth ribs. 2. Small right pleural effusion. No pneumothorax. RADIA
[2019-04-23] MEDS ORDERED: MAGNESIUM CITRATE 296 ML BOTTLE PO STA (16:47)
== END 2019-04-23 16:54 | disposition home or self-care (01) ==
LOC: ED 15:20
DX: S22.41XA Multiple fractures of ribs, right side, initial encounter for closed fracture (principal); W01.190A Fall on same level from slipping, tripping and stumbling with subsequent striking against furniture, initial encounter; Y93.89 Activity, other specified; Z91.81 History of falling; J90 Pleural effusion, not elsewhere classified; I10 Essential (primary) hypertension; E11.42 Type 2 diabetes mellitus with diabetic polyneuropathy; Z79.84 Long term (current) use of oral hypoglycemic drugs; Z79.02 Long term (current) use of antithrombotics/antiplatelets; Z79.82 Long term (current) use of aspirin
CPT/HCPCS: 71101; 99281; 99283; A9270

== ENCOUNTER 2019-05-10 10:52 | Outpatient (CLI) | payer MEDICARE, OTHER ==
[2019-05-10] MEDS ORDERED: REGADENOSON 0.4 MG/5 ML SYRINGE IVP ONE ×2 (13:15→15:15)
--- NOTE | 2019-05-10 15:09 | CARDIAC PROCEDURE NOTE ---
DATE OF SERVICE: 05/10/2019 Physician: Gretta Zapien MD, [facility] INDICATION: Dyspnea on exertion. CARDIAC RISK FACTORS: Male gender, advanced age, family history of heart disease, hypertension, diabetes. Patient has known coronary disease with prior bypass surgery and prior coronary stenting. DESCRIPTION OF PROCEDURE: After signing informed consent, the patient underwent a Lexiscan pharmaceutical stress test with nuclear myocardial perfusion imaging. RESTING HEART RATE: 86. PEAK HEART RATE: 98. RESTING BLOOD PRESSURE: 148/85. BLOOD PRESSURE AFTER LEXISCAN: 141/73. Lexiscan was infused per protocol. The patient developed brief shortness of breath, had no chest pain or any side effects from the medication. RESTING EKG: Normal sinus rhythm, atypical left bundle branch block. EKG AT PEAK: Unchanged. After approximately 30-45 minutes (after part 2 nuclear scanning), the patient reported feeling weak when he sat up. He thought it was from keeping his arm raised over his head for so many minutes. Vital signs at this time showed a blood pressure of 124/70, heart rate of 80 and regular. He was given some orange juice and felt better and was discharged in stable condition. SUMMARY 1. Abnormal resting EKG. 2. Brief shortness of breath during pharmaceutical stress testing. 3. Because of underlying left bundle branch block, cannot comment on ST segments or T waves. 4. Nuclear images reported separately. cc: Raymond Zhang MD TD: 05/10/2019 14:58 MTDD
--- NOTE | 2019-05-10 18:14 | Nuclear Medicine Report ---
Reason: JOHNSON Procedure Date: 05/10/2019 Accession Number: [id number] / [id number] Procedure: NM - Myocardial Perfusion STR/RST CPT Code: FULL RESULT: EXAM: SINGLE-ISOTOPE EXERCISE STRESS TEST. SINGLE-ISOTOPE AND ONE-DAY REST/STRESS MYOCARDIAL PERFUSION SCANS WITH TOMOGRAPHIC IMAGING, QUANTITATIVE ANALYSIS, WALL MOTION ANALYSIS AND CALCULATION OF EJECTION FRACTION. EXAM DATE: 05/10/2019 03:11 PM. CLINICAL HISTORY: JOHNSON. COMPARISON: MYOCARDIAL PERFUSION 05/10/2019 12:27 PM. TECHNIQUE: A rest myocardial perfusion scan was done with tomography after the intravenous administration of 10.6 mCi Tc-99m sestamibi. After an appropriate delay, a treadmill exercise stress was performed according to department protocol. The patient exercised for 0 minutes and 37 seconds. The maximum heart rate was 98 bpm, which was 74% of the maximum predicted heart rate of 131 bpm. At approximately peak heart rate, 43.7 mCi of Tc-99m sestamibi was injected for stress myocardial perfusion scan. Motion correction was applied when appropriate. Gated tomographic images were obtained for wall motion analysis and computation of left ventricular ejection fraction. FINDINGS: Perfusion images: Left ventricular chamber size appears normal at rest and unchanged at stress. There is a moderate size, moderate to severe fixed perfusion deficit involving the entire anteroseptal wall extending to the apex. No convincing reversible perfusion deficits. SSS 8, SRS 8, SDS 0. Gated images: There is evidence of anteroseptal/anterior wall hypokinesis. Calculated left ventricular EDV 121 mL, ESV 65 mL. The left ventricular ejection fraction is estimated at 47% (normal > 50%). IMPRESSION: 1. No convincing reversible perfusion deficits to indicate stress-induced ischemia. 2. Moderate size, moderate to severe fixed perfusion deficit involving the entire anteroseptal wall extending to the apex. 3. Left ventricular ejection fraction of 47% (normal > 50%). 4. Evidence of anteroseptal/anterior wall hypokinesis. Please correlate findings with stress ECG tracings and procedure notes. RADIA
== END 2019-05-10 10:53 | disposition home or self-care (01) ==
LOC: DI 10:52
PROVIDERS: ATTEND Internal Medicine Cardiovascular Disease
DX: R06.09 Other forms of dyspnea (principal); R94.31 Abnormal electrocardiogram [ECG] [EKG]
CPT/HCPCS: 78452; 93016; 93017; 93018; A9500; J2785

== ENCOUNTER 2019-06-23 10:02 | Outpatient (CLI) | payer MEDICARE, OTHER | END 2019-06-23 10:03 | disposition home or self-care (01) | LOC: DI 10:02 | PROVIDERS: ATTEND Internal Medicine Cardiovascular Disease | DX: R94.39 Abnormal result of other cardiovascular function study (principal); I51.7 Cardiomegaly; I27.20 Pulmonary hypertension, unspecified | CPT/HCPCS: 93306 ==

== ENCOUNTER 2019-09-09 09:13 | Emergency (ER) | payer MEDICARE, OTHER ==
[2019-09-09 10:32] LABS: BILIRUBIN,URINE NEGATIVE (NEGATIVE); GLUCOSE, URINE (UA) NEGATIVE (NEGATIVE); KETONES,URINE (UA) NEGATIVE (NEGATIVE); LEUKOCYTE ESTERASE, URINE NEGATIVE (NEGATIVE); NITRITE,URINE NEGATIVE (NEGATIVE); OCCULT BLOOD,URINE NEGATIVE (NEGATIVE); PH,URINE 6.5 PH (5.0-7.5); PROTEIN,URINE NEGATIVE (NEGATIVE); UROBILINOGEN,URINE 0.2 (NORMAL) E.U./dL (NORMAL)
--- NOTE | 2019-09-09 10:34 | XRAY Report ---
Reason: shortness of breath Procedure Date: 09/09/2019 Accession Number: [id number] / [id number] Procedure: XR - Chest 2 View X-Ray CPT Code: 47791 Final Report FULL RESULT: EXAM: CHEST RADIOGRAPHY EXAM DATE: 09/09/2019 09:59 AM. CLINICAL HISTORY: Shortness of breath. COMPARISON: RIBS W/PA CHEST RT 04/23/2019 3:43 PM. TECHNIQUE: 2 views. FINDINGS: Lungs/Pleura: Mildly increased bilateral central bronchial wall thickening and interstitial pulmonary opacities. Unchanged sites of pleural parenchymal pulmonary scarring. Stable small right pleural effusion versus pleural thickening. New left pleural effusion is seen. No pneumothorax. Mediastinum: Stable heart size and mediastinum. CABG clips again seen. Sternal wires appear intact. Other: None. IMPRESSION: 1. Mild increased central bronchial wall thickening could reflect reactive airways or bronchitis. 2. Interstitial pulmonary prominence is also increased which could reflect vascular congestion or interstitial pulmonary edema. 3. Persistent small right pleural effusion versus pleural thickening, and new left pleural effusion noted. RADIA
[2019-09-09 10:39] LABS: CLARITY,URINE CLEAR (CLEAR)
--- NOTE | 2019-09-09 11:14 | ED Physician Documentation ---
PD HPI DYSPNEA - Stated complaint Stated Complaint: SOA/FREQUENT URINATION - Chief complaint Chief Complaint: UTI - History obtained from History obtained from: Patient, Family - History of Present Illness Timing - onset: How many days ago (4) Timing - details: Gradual onset Pain level now: 0 Associated symptoms: No: Fever, Wheezing, Chest pain / discomfort, Bilateral edema, Unilateral edema Recently seen: Not recently seen - Additional information Additional information: This is an 89-year-old man who presented to be evaluated for the possibility of a urinary tract infection because he says he is been urinating every 2 hours since Wednesday. He says there is no burning and no blood in it. He denies diarrhea stating in fact that he is been constipated. He has had no nausea or vomiting. Denies abdominal pain. No fever and no back pain. The patient has also been getting more short of breath than normal. He originally told me he was not coughing but then said he was bringing up a little bit of clear phlegm and he is been provided an inhaler from his cardiac rn but he is out of it. He normally gets short of breath with exertion it may just be a little bit worse. Patient does have occasional palpitations but denies chest pain. He is not a smoker and he does not use home oxygen. Patient is anxious to be discharged because he is headed to his brother's . His brother 2 weeks ago and its very important for him to be at the . Review of Systems Constitutional: denies: Fever Cardiac: reports: Palpitations. denies: Chest pain / pressure, Pedal edema Respiratory: reports: Dyspnea, Cough. denies: Hemoptysis GI: denies: Abdominal Pain, Nausea, Vomiting : reports: Frequency. denies: Dysuria, Hesitancy, Incontinent, Hematuria Musculoskeletal: denies: Back pain Neurologic: denies: Generalized weakness, Focal weakness, Syncope Psychiatric: denies: Anxiety PD PAST MEDICAL HISTORY - Past Medical History Cardiovascular: Hypertension, Coronary artery disease Respiratory: COPD, Emphysema Neuro: Peripheral neuropathy Endocrine/Autoimmune: Type 2 diabetes GI: GERD : None HEENT: None Psych: None Musculoskeletal: Osteoarthritis, Other Derm: None - Past Surgical History Past Surgical History: Yes Ortho: Knee replacement Cardiovascular: CABG, Coronary stent - Present Medications Home Medications: Ambulatory Orders Medication Instructions Recorded Confirmed Aspirin [Adult Low Dose Aspirin EC] 81 mg PO DAILY 10/10/17 05/26/19 Losartan Potassium 50 mg PO DAILY 08/10/17 04/23/19 Metformin HCl 500 mg PO BID 08/10/17 04/23/19 Nitroglycerin 0.4 mg/Hr Patch 1 patch DAILY 08/10/17 04/23/19 [Nitro-Dur] Atorvastatin Calcium [Lipitor] 40 mg PO QPM 03/22/19 03/26/19 Clopidogrel [Plavix] 75 mg PO DAILY 03/22/19 04/23/19 Pantoprazole [Protonix] 40 mg PO QDAC 03/22/19 04/23/19 Acetaminophen/Cod 300/30 [Tylenol 1 tab PO Q6HR #28 tablet 03/23/19 03/26/19 #3] Ibuprofen [Motrin] 600 mg PO Q8H #45 tablet 03/23/19 04/23/19 Nitroglycerin [Nitrostat] 0.4 mg SL Q5MIN PRN 03/23/19 04/23/19 dilTIAZem HCl [Diltiazem 24Hr ER 120 mg PO DAILY 03/23/19 04/23/19 (Xr)] Furosemide 20 mg PO PRN 03/26/19 03/26/19 Polyethylene Glycol 3350 [Miralax] 17 gm PO DAILY PRN #1 bottle 03/26/19 04/23/19 Hydrocodone/Acetaminophen 1 - 2 each PO Q6H PRN #20 tablet 04/23/19 [Hydrocodon-Acetaminophen 5-325] - Allergies Allergies/Adverse Reactions: Allergies Allergy/AdvReac Type Severity Reaction Status Date / Time egg Allergy Unknown Unknown Verified 09/09/19 09:32 - Social History Does the pt smoke?: No Smoking Status: Never smoker Does the pt drink ETOH?: Yes Does the pt have substance abuse?: No - Immunizations Immunizations are current?: Yes - POLST Patient has POLST: No POLST Status: Full Code PD ED PE NORMAL - Vitals Vital signs reviewed: Yes - General General: Alert and oriented X 3, No acute distress, Well developed/nourished - HEENT HEENT: Atraumatic, PERRL, Moist mucous membranes - Neck Neck: Supple, no meningeal sign, No adenopathy, No JVD, No bruit - Cardiac Cardiac: RRR, No murmur, Strong equal pulses - Respiratory Respiratory: No respiratory distress, Clear bilaterally - Abdomen Abdomen: Normal bowel sounds, Soft - Derm Derm: Normal color, Warm and dry, No rash - Neuro Neuro: No motor deficit, No sensory deficit, Normal speech - Psych Psych: Normal mood, Normal affect Results - Vitals Vitals: Vital Signs - 24 hr 09/09/19 09/09/19 09/09/19 09:33 11:00 11:15 Temperature 37.1 C 36.9 C Heart Rate 78 78 76 Respiratory 17 22 22 Rate Blood Pressure 149/73 H 139/89 H 139/89 H O2 Saturation 93 97 94 09/09/19 11:24 Temperature 36.9 C Heart Rate 77 Respiratory 22 Rate Blood Pressure 158/93 H O2 Saturation 96 Oxygen O2 Source Room air - Labs Labs: Laboratory Tests 09/09/19 10:26 Urine Color YELLOW Urine Clarity CLEAR Urine pH 6.5 Ur Specific [place] 1.010 Urine Protein NEGATIVE Urine Glucose (UA) NEGATIVE Urine Ketones NEGATIVE Urine Occult Blood NEGATIVE Urine Nitrite NEGATIVE Urine Bilirubin NEGATIVE Urine Urobilinogen 0.2 (NORMAL) Ur Leukocyte Esterase NEGATIVE Ur Microscopic Review NOT INDICATED Urine Culture Comments NOT INDICATED PD MEDICAL DECISION MAKING - ED course Complexity details: reviewed results, d/w patient ED course: Patient urinalysis was negative. We talked about him staying in the emergency department and being worked up for congestive heart failure with worsening shortness of breath and for an acute renal injury causing diuresis. He does not want to stay because it is very important for him to be at his brother's . He is here with his daughter and I think he has the capacity to make this decision to leave and follow-up as an outpatient with his primary care provider next week. He is encouraged to return to the emergency department if he has any worsening shortness of breath, develops chest pain, is dizzy or has change in his urinary symptoms. Departure - Departure Disposition: 01 Home, Self Care Condition: Good Follow-Up: Shorty Huitron MD [Provider Admit Priv/Credential] - Comments: Be sure to follow-up with your primary care provider on Wednesday. There is no evidence you have a urinary tract infection. If your symptoms are worsening ove r the weekend particularly if you develop chest pain, increasing short of breath or increasing edema in your legs you should return to the emergency department for reevaluation. Discharge Date/Time: 09/09/19 11:27
[2019-09-09 11:25] VITALS: BP 158/93
--- NOTE | 2019-10-01 07:04 | ED Physician Documentation ---
ED Addendum - Addendum Addendum: 10/01/19 07:03 Final diagnosis: Urinary frequency
== END 2019-09-09 11:27 | disposition home or self-care (01) ==
LOC: ED 09:13
DX: R35.0 Frequency of micturition (principal); J43.9 Emphysema, unspecified; I10 Essential (primary) hypertension; E11.42 Type 2 diabetes mellitus with diabetic polyneuropathy; Z79.84 Long term (current) use of oral hypoglycemic drugs; I25.10 Atherosclerotic heart disease of native coronary artery without angina pectoris; Z95.1 Presence of aortocoronary bypass graft; Z95.5 Presence of coronary angioplasty implant and graft; Z79.02 Long term (current) use of antithrombotics/antiplatelets; Z79.82 Long term (current) use of aspirin
CPT/HCPCS: 71046; 81001; 81003; 87086; 99284

== ENCOUNTER 2019-09-20 08:55 | Outpatient (CLI) | payer MEDICARE, OTHER ==
[2019-09-20 17:16] LABS: BASOPHILS % (AUTO) 0.5 %; EOSINOPHILS # (AUTO) 0.1 10^3/uL (0.0-0.7); EOSINOPHILS % (AUTO) 2.2 %; HGB - HEMOGLOBIN 12.8 g/dL (14.0-18.0); LYMPHOCYTES # (AUTO) 1.3 10^3/uL (1.5-3.5); LYMPHOCYTES % (AUTO) 23.9 %; MEAN CORPUSCULAR HEMOGLOBIN 30.1 pg (27.0-31.0); MEAN CORPUSCULAR HGB CONC 31.5 g/dL (32.0-36.0); MEAN CORPUSCULAR VOLUME 95.5 fL (80.0-94.0); MEAN PLATELET VOLUME 13.5 fL (7.4-11.4); MONOCYTES # (AUTO) 0.6 10^3/uL (0.0-1.0); MONOCYTES % (AUTO) 11.6 %; NEUTROPHILS # (AUTO) 3.4 10^3/uL (1.5-6.6); NEUTROPHILS % (AUTO) 61.4 %; RED BLOOD COUNT 4.25 10^6/uL (4.70-6.10); RED CELL DISTRIBUTION WIDTH 13.8 % (12.0-15.0); WHITE BLOOD COUNT 5.5 x10^3/uL (4.8-10.8)
[2019-09-20 18:20] LABS: DIFFERENTIAL COMMENT MANUAL=AUTO DIFF; PLATELET ESTIMATE, MANUAL DECREASED (<130,000) (NORMAL); PLATELET MORPHOLOGY PLATELET CLUMPING (NORMAL)
[2019-09-20 18:21] LABS: RBC MORPHOLOGY (MULTIPLE) 3+ BURR CELLS (NORMAL)
== END 2019-09-20 08:56 | disposition home or self-care (01) ==
LOC: LAB.S 08:55
PROVIDERS: ATTEND Nurse Practitioner Family
DX: D69.6 Thrombocytopenia, unspecified (principal); R35.0 Frequency of micturition
CPT/HCPCS: 36415; 85025; 87086

== ENCOUNTER 2019-10-02 13:26 | Outpatient (CLI) | payer MEDICARE, OTHER ==
[~2019-10-02 13:26] MED LIST: ALBUTEROL NEB 2.5 MG/3 ML INH SCH
== END 2019-10-02 13:27 | disposition home or self-care (01) ==
LOC: RT 13:26
PROVIDERS: ATTEND Family Medicine
DX: R06.09 Other forms of dyspnea (principal)
CPT/HCPCS: 94060

== ENCOUNTER 2019-10-05 08:36 | Outpatient (CLI) | payer MEDICARE, OTHER ==
[2019-10-05 09:08] LABS: ABNORMAL LYMPHS % (MANUAL) 0 %; BAND NEUTROPHILS % (MANUAL) 0 %
[2019-10-05 17:29] LABS: BASOPHILS % (AUTO) 0.6 %; EOSINOPHILS % (AUTO) 2.3 %; HGB - HEMOGLOBIN 13.1 g/dL (14.0-18.0); LYMPHOCYTES % (AUTO) 24.2 %; MEAN CORPUSCULAR HEMOGLOBIN 29.6 pg (27.0-31.0); MEAN CORPUSCULAR HGB CONC 31.3 g/dL (32.0-36.0); MEAN CORPUSCULAR VOLUME 94.6 fL (80.0-94.0); MONOCYTES % (AUTO) 11.1 %; NEUTROPHILS % (AUTO) 61.6 %; RED BLOOD COUNT 4.42 10^6/uL (4.70-6.10); RED CELL DISTRIBUTION WIDTH 14.1 % (12.0-15.0); WHITE BLOOD COUNT 4.9 x10^3/uL (4.8-10.8)
[2019-10-05 18:07] LABS: CREATININE,URINE 130.2 mg/dL; MICROALBUM/CREATININE RATIO,UR 60.7 ug/mg (<30.0); MICROALBUMIN,URINE 7.9 mg/dL (0-300.0)
[2019-10-05 18:13] LABS: CHOL/HDL RATIO 2.1 (<5.0); CHOLESTEROL 123 mg/dL; HDL CHOLESTEROL 59 mg/dL; LDL CHOLESTEROL,CALCULATED 54 mg/dL; LDL/HDL RATIO 0.9 (<3.6); VLDL CHOLESTEROL 10 mg/dL
[2019-10-05 18:48] LABS: HB2 TOTAL 13.1 g/dL; HEMOGLOBIN A1C 0.65 g/dL; HEMOGLOBIN A1C % 6.7 % (4.6-6.2)
[2019-10-05 19:58] LABS: DIFFERENTIAL COMMENT MANUAL DIFFERENTIAL; EOSINOPHILS # (MANUAL) 0.2 10^3/uL (0-0.7); LYMPHOCYTES # (MANUAL) 1.3 10^3/uL (1.5-3.5); LYMPHOCYTES % (MANUAL) 19 %; MONOCYTES # (MANUAL) 0.2 10^3/uL (0.0-1.0); PLATELET ESTIMATE, MANUAL NORMAL (130-450,000) (NORMAL); PLATELET MORPHOLOGY PLATELET CLUMPING (NORMAL); RBC MORPHOLOGY (MULTIPLE) NORMAL APPEARANCE (NORMAL)
== END 2019-10-05 08:37 | disposition home or self-care (01) ==
LOC: LAB.S 08:36
PROVIDERS: ATTEND Family Medicine
DX: E78.2 Mixed hyperlipidemia (principal); E11.42 Type 2 diabetes mellitus with diabetic polyneuropathy; D69.6 Thrombocytopenia, unspecified
CPT/HCPCS: 36415; 80061; 82043; 82570; 83036; 83721; 85025

== ENCOUNTER 2019-10-20 14:03 | Outpatient (CLI) | payer MEDICARE, OTHER ==
[2019-10-20 18:43] LABS: PSA TOTAL 6.05 ng/mL (0.000-2.000)
[2019-10-20 19:44] LABS: PSA FREE 1.82 ng/mL (0.16-2.81)
== END 2019-10-20 14:04 | disposition home or self-care (01) ==
LOC: LAB.S 14:03
PROVIDERS: ATTEND Nurse Practitioner Family
DX: R35.0 Frequency of micturition (principal)
CPT/HCPCS: 36415; 81003; 84153; 84154; 87086

== ENCOUNTER 2019-10-28 03:48 | Outpatient (CLI) | payer MEDICARE, OTHER | END 2019-10-28 03:49 | disposition critical access hospital (66) | LOC: EMS 03:48 | PROVIDERS: ATTEND Surgery | DX: R05 Cough (principal); R06.00 Dyspnea, unspecified | CPT/HCPCS: A0425; A0427 ==

== ENCOUNTER 2019-10-28 04:17 | Emergency (ER) | payer MEDICARE, OTHER ==
--- NOTE | 2019-10-28 04:36 | ED Physician Documentation ---
PD HPI DYSPNEA - Stated complaint Stated Complaint: COUGH/SOA - Chief complaint Chief Complaint: General - History obtained from History obtained from: Patient, EMS - History of Present Illness Timing - onset: How many weeks ago (1) Timing - onset during: Light activity Timing - duration: Weeks (1) Timing - details: Gradual onset, Still present Inciting event(s): URI (cough and wheezing for a week, worse the past couple days). No: Out of meds Improved by: Inhaler/neb Worsened by: Exertion. No: Laying flat Associated symptoms: Cough, Wheezing, Bilateral edema (chronic, currently better than usual.). No: Fever, Chest pain / discomfort Similar symptoms before: Diagnosis (COPD) Recently seen: Clinic (Rx with inhaled steroid but pharmacy did not have it available yet.) Review of Systems Constitutional: reports: Myalgias. denies: Fever Nose: reports: Congestion. denies: Rhinorrhea / runny nose Throat: denies: Sore throat Cardiac: denies: Chest pain / pressure Respiratory: reports: Dyspnea, Cough, Wheezing GI: denies: Nausea, Vomiting, Diarrhea Neurologic: reports: Generalized weakness. denies: Focal weakness, Near syncope, Altered mental status, Headache Immunocompromised: denies: Immunocompromised PD PAST MEDICAL HISTORY - Past Medical History Past Medical History: Yes Cardiovascular: Hypertension, Coronary artery disease Respiratory: COPD, Emphysema Neuro: Peripheral neuropathy Endocrine/Autoimmune: Type 2 diabetes GI: GERD : None HEENT: None Psych: None Musculoskeletal: Osteoarthritis, Other Derm: None - Past Surgical History Past Surgical History: Yes Ortho: Knee replacement Cardiovascular: CABG, Coronary stent - Present Medications Home Medications: Ambulatory Orders Medication Instructions Recorded Confirmed Aspirin [Adult Low Dose Aspirin EC] 81 mg PO DAILY 08/10/17 03/26/19 Losartan Potassium 50 mg PO DAILY 08/10/17 04/23/19 Metformin HCl 500 mg PO BID 08/10/17 04/23/19 Nitroglycerin 0.4 mg/Hr Patch 1 patch DAILY 08/10/17 04/23/19 [Nitro-Dur] Atorvastatin Calcium [Lipitor] 40 mg PO QPM 03/22/19 03/26/19 Clopidogrel [Plavix] 75 mg PO DAILY 03/22/19 04/23/19 Pantoprazole [Protonix] 40 mg PO QDAC 03/22/19 04/23/19 Acetaminophen/Cod 300/30 [Tylenol 1 tab PO Q6HR #28 tablet 03/23/19 03/26/19 #3] Ibuprofen [Motrin] 600 mg PO Q8H #45 tablet 03/23/19 04/23/19 Nitroglycerin [Nitrostat] 0.4 mg SL Q5MIN PRN 03/23/19 04/23/19 dilTIAZem HCl [Diltiazem 24Hr ER 120 mg PO DAILY 03/23/19 04/23/19 (Xr)] Furosemide 20 mg PO PRN 03/26/19 03/26/19 Polyethylene Glycol 3350 [Miralax] 17 gm PO DAILY PRN #1 bottle 03/26/19 04/23/19 Hydrocodone/Acetaminophen 1 - 2 each PO Q6H PRN #20 tablet 04/23/19 [Hydrocodon-Acetaminophen 5-325] Benzonatate [Tessalon Perle] 100 mg PO TID PRN #20 capsule 10/28/19 cefUROXime axetiL [Ceftin] 500 mg PO BID #14 tablet 10/28/19 dexAMETHasone [Decadron] 4 mg PO DAILY #7 tablet 10/28/19 - Allergies Allergies/Adverse Reactions: Allergies Allergy/AdvReac Type Severity Reaction Status Date / Time No Known Drug Allergies Allergy Verified 10/28/19 04:39 - Social History Does the pt smoke?: No Smoking Status: Never smoker Does the pt drink ETOH?: Yes Does the pt have substance abuse?: No - Immunizations Immunizations are current?: Yes - POLST Patient has POLST: No POLST Status: Full Code PD ED PE NORMAL - Vitals Vital signs reviewed: Yes - General General: Alert and oriented X 3, No acute distress, Well developed/nourished - HEENT HEENT: Moist mucous membranes, Pharynx benign - Neck Neck: Supple, no meningeal sign, No adenopathy - Cardiac Cardiac: RRR, No murmur - Respiratory Respiratory: No: Clear bilaterally (Diffuse wheezing. There is no coarse sounds noted.) - Abdomen Abdomen: Soft, Non tender - Derm Derm: Normal color, Warm and dry - Extremities Extremities: No tenderness to palpate, Normal ROM s pain, No calf tenderness / cord, Other (1+ edema in both legs without any tenderness.) - Neuro Neuro: Alert and oriented X 3, No motor deficit, Normal speech Eye Opening: Spontaneous Motor: Obeys Commands Verbal: Oriented GCS Score: 15 Results - Vitals Vitals: Vital Signs - 24 hr 10/28/19 10/28/19 10/28/19 04:22 05:10 06:10 Temperature 36.1 C L Heart Rate 79 81 79 Respiratory 18 19 18 Rate Blood Pressure 141/83 H 134/83 H 145/81 H O2 Saturation 95 94 95 10/28/19 10/28/19 07:07 07:18 Temperature Heart Rate 72 84 Respiratory 18 20 Rate Blood Pressure O2 Saturation 95 Oxygen O2 Source Room air - Labs Labs: Laboratory Tests 10/28/19 10/28/19 10/28/19 04:50 04:50 04:50 WBC 6.7 RBC 4.09 L Hgb 12.3 L Hct 38.8 L MCV 94.9 H MCH 30.1 MCHC 31.7 L RDW 14.0 Plt Count 138 MPV 11.3 Neut # (Auto) 4.9 Lymph # (Auto) 0.9 L [place] # (Auto) 0.7 Eos # (Auto) 0.2 Baso # (Auto) 0.0 Absolute Nucleated RBC 0.00 Nucleated RBC % 0.0 Sodium 138 Potassium 3.8 Chloride 102 Carbon Dioxide 28 Anion Gap 8.0 BUN 19 Creatinine 1.0 Estimated GFR (MDRD) 70 L Glucose 128 H Calcium 8.8 Magnesium 1.7 Total Bilirubin 0.9 AST 19 ALT 23 Alkaline Phosphatase 89 B-Natriuretic Peptide 408 H Total Protein 6.4 L Albumin 3.6 Globulin 2.8 Albumin/Globulin Ratio 1.3 Lipase 30 - Rads (name of study) chest xray Radiology: Prelim report reviewed (No infiltrates; small pleural effusions. Post op changes. ), See rad report PD MEDICAL DECISION MAKING - ED course Complexity details: reviewed results, re-evaluated patient (Feeling better after nebulizer treatments), considered differential, d/w patient, d/w family (daughters) Departure - Departure Disposition: 01 Home, Self Care Condition: Stable Record reviewed to determine appropriate education?: Yes Instructions: ED Upper Resp Infec Abx Tx Prescriptions: Benzonatate [Tessalon Perle] 100 mg PO TID PRN #20 capsule PRN Reason: Cough cefUROXime axetiL [Ceftin] 500 mg PO BID #14 tablet dexAMETHasone [Decadron] 4 mg PO DAILY #7 tablet Comments: Your chest x-ray is good without any signs of pneumonia. It does sound like you likely have some bronchitis and flaring up your COPD. Continue your home nebulizer with the DuoNeb 3 times a day and extra if needed. Stay well-hydrated. Use Decadron steroid daily for the next week. Benzonatate as needed for cough suppression. Stop the ciprofloxacin for your bladder and add cefuroxime antibiotic which is largely targeted for the respiratory tract but should cover bladder infections as well pending the urine culture from the office. Recheck if not improving well over the next couple of days; return sooner if worsening. Discharge Date/Time: 10/28/19 07:30
[2019-10-28] MEDS ORDERED: DEXAMETHASONE 10 MG/ML VIAL IVP STA (04:37)
[2019-10-28 05:01] LABS: BASOPHILS % (AUTO) 0.4 %; EOSINOPHILS # (AUTO) 0.2 10^3/uL (0.0-0.7); EOSINOPHILS % (AUTO) 2.2 %; HGB - HEMOGLOBIN 12.3 g/dL (14.0-18.0); LYMPHOCYTES # (AUTO) 0.9 10^3/uL (1.5-3.5); LYMPHOCYTES % (AUTO) 12.9 %; MEAN CORPUSCULAR HEMOGLOBIN 30.1 pg (27.0-31.0); MEAN CORPUSCULAR HGB CONC 31.7 g/dL (32.0-36.0); MEAN CORPUSCULAR VOLUME 94.9 fL (80.0-94.0); MEAN PLATELET VOLUME 11.3 fL (7.4-11.4); MONOCYTES # (AUTO) 0.7 10^3/uL (0.0-1.0); MONOCYTES % (AUTO) 11.1 %; NEUTROPHILS # (AUTO) 4.9 10^3/uL (1.5-6.6); NEUTROPHILS % (AUTO) 73.1 %; PLT - PLATELET COUNT 138 10^3/uL (130-450); RED BLOOD COUNT 4.09 10^6/uL (4.70-6.10); WHITE BLOOD COUNT 6.7 x10^3/uL (4.8-10.8)
[2019-10-28 05:15] LABS: ALBUMIN 3.6 g/dL (3.2-5.5); ALBUMIN/GLOBULIN RATIO 1.3 (1.0-2.2); BILIRUBIN,TOTAL 0.9 mg/dL (0.2-1.0); CALCIUM 8.8 mg/dL (8.5-10.3); MAGNESIUM 1.7 mg/dL (1.7-2.8); TOTAL PROTEIN 6.4 g/dL (6.7-8.2)
--- NOTE | 2019-10-28 05:22 | XRAY Report ---
Reason: dyspnea/COPD Procedure Date: 10/28/2019 Accession Number: [id number] / [id number] Procedure: XR - Chest 2 View X-Ray CPT Code: 22660 Final Report FULL RESULT: EXAM: CHEST RADIOGRAPHY EXAM DATE: 10/28/2019 05:11 AM. CLINICAL HISTORY: Dyspnea/COPD. COMPARISON: CHEST 2 VIEW 09/09/2019 9:56 AM. TECHNIQUE: 2 views. FINDINGS: Lungs/Pleura: Pulmonary vascular congestion. Small bilateral pleural effusions. No pneumothorax. Mediastinum: Within exam limitations, there is mild cardiomegaly. Other: Median sternotomy and CABG. IMPRESSION: 1. Cardiomegaly and postoperative changes with pulmonary vascular congestion and small pleural effusions. [facility]
[2019-10-28 06:10] VITALS: BP 145/81
[2019-10-28] MEDS ORDERED: cefTRIAXone 1 GM VIAL IVP STA (06:23)
[2019-10-28] MEDS ORDERED: BENZONATATE 100 MG CAPSULE PO STA (06:23)
[2019-10-28] MEDS ORDERED: IPRATROPIUM/ALBUTEROL 3 ML NEB INH STA (06:23)
== END 2019-10-28 07:30 | disposition home or self-care (01) ==
LOC: EDUNIT# → ED 04:17
DX: J44.1 Chronic obstructive pulmonary disease with (acute) exacerbation (principal); J06.9 Acute upper respiratory infection, unspecified; R94.31 Abnormal electrocardiogram [ECG] [EKG]; I10 Essential (primary) hypertension; I25.10 Atherosclerotic heart disease of native coronary artery without angina pectoris; E11.9 Type 2 diabetes mellitus without complications; Z79.82 Long term (current) use of aspirin; Z96.659 Presence of unspecified artificial knee joint; Z95.1 Presence of aortocoronary bypass graft; Z95.5 Presence of coronary angioplasty implant and graft
CPT/HCPCS: 36415; 71046; 80053; 83690; 83735; 83880; 85025; 93005; 94640; 96374; 96375; 99284; A9270

== ENCOUNTER 2019-10-31 13:20 | Outpatient (CLI) | payer MEDICARE, OTHER | END 2019-10-31 13:21 | disposition short-term general hospital (02) | LOC: EMS 13:20 | PROVIDERS: ATTEND Surgery | DX: R06.02 Shortness of breath (principal); R05 Cough; R53.1 Weakness | CPT/HCPCS: A0425; A0429 ==

== ENCOUNTER 2019-12-05 11:47 | Outpatient (CLI) | payer MEDICARE, OTHER ==
[2019-12-05 17:33] LABS: BASOPHILS # (AUTO) 0.1 10^3/uL (0.0-0.1); BASOPHILS % (AUTO) 0.8 %; EOSINOPHILS # (AUTO) 0.1 10^3/uL (0.0-0.7); HGB - HEMOGLOBIN 12.1 g/dL (14.0-18.0); LYMPHOCYTES # (AUTO) 0.9 10^3/uL (1.5-3.5); LYMPHOCYTES % (AUTO) 14.4 %; MEAN CORPUSCULAR HEMOGLOBIN 29.9 pg (27.0-31.0); MEAN CORPUSCULAR HGB CONC 32.1 g/dL (32.0-36.0); MEAN CORPUSCULAR VOLUME 93.1 fL (80.0-94.0); MEAN PLATELET VOLUME 11.6 fL (7.4-11.4); MONOCYTES # (AUTO) 0.6 10^3/uL (0.0-1.0); MONOCYTES % (AUTO) 9.8 %; NEUTROPHILS # (AUTO) 4.5 10^3/uL (1.5-6.6); NEUTROPHILS % (AUTO) 72.4 %; PLT - PLATELET COUNT 125 10^3/uL (130-450); RED BLOOD COUNT 4.05 10^6/uL (4.70-6.10); RED CELL DISTRIBUTION WIDTH 13.6 % (12.0-15.0); WHITE BLOOD COUNT 6.3 x10^3/uL (4.8-10.8)
[2019-12-05 18:05] LABS: CALCIUM 8.6 mg/dL (8.5-10.3); CREATININE 1.2 mg/dL (0.6-1.2)
[2019-12-05 18:42] LABS: PLATELET ESTIMATE, MANUAL NORMAL (130-450,000) (NORMAL); PLATELET MORPHOLOGY NORMAL APPEARANCE (NORMAL); RBC MORPHOLOGY (MULTIPLE) NORMAL APPEARANCE (NORMAL)
== END 2019-12-05 11:48 | disposition home or self-care (01) ==
LOC: LAB.R 11:47
PROVIDERS: ATTEND Family Medicine
DX: J44.1 Chronic obstructive pulmonary disease with (acute) exacerbation (principal); I13.0 Hypertensive heart and chronic kidney disease with heart failure and stage 1 through stage 4 chronic kidney disease, or unspecified chronic kidney disease; N18.3 Chronic kidney disease, stage 3 (moderate)
CPT/HCPCS: 80048; 85025

== ENCOUNTER 2020-01-08 12:46 | Outpatient (CLI) | payer MEDICARE, OTHER ==
[2020-01-08 17:16] LABS: ALBUMIN 3.9 g/dL (3.2-5.5); CALCIUM 8.7 mg/dL (8.5-10.3); CREATININE 1.1 mg/dL (0.6-1.2)
== END 2020-01-08 12:47 | disposition home or self-care (01) ==
LOC: LAB.S 12:46
PROVIDERS: ATTEND Nurse Practitioner
DX: I50.32 Chronic diastolic (congestive) heart failure (principal)
CPT/HCPCS: 36415; 80069; 83880